=== PATIENT | female | born 2000 | race Native Hawaiian/Other Pacific Islander ===

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

== ENCOUNTER 2018-06-17 16:56 | Emergency (ER) | payer OTHER ==
[2018-06-17 17:04] VITALS: RESP 18
--- NOTE | 2018-06-17 17:26 | ED ---
Female Urogenital HPI - General Chief complaint: Vaginal Bleeding Stated complaint: POSS MISCARRIAGE Time Seen by Provider: 06/17/18 17:13 Source: patient, RN notes reviewed Mode of arrival: ambulatory Limitations: no limitations - History of Present Illness Initial comments: This is a 17-year-old female who presents to the emergency department with chief complaint of possible miscarriage. Patient states that she does not remember the last time she had a period. She states that the last time she was sexually active was 2 months ago. Patient states that last week she did a test at home and it was positive. She states that yesterday she developed lower abdominal cramping and sharp pains as well as heavy vaginal bleeding. Patient states that she has been bleeding through tampons and pads and has had to wear a diaper. She denies any fevers or chills, chest pain or shortness of breath, nausea or vomiting, diarrhea or constipation. States that her [employer] is Dr. Gilmore and was planning on calling him tomorrow to set up an appointment. - Related Data Home Medications Medication Instructions Recorded Confirmed No Known Home Medications 06/17/18 06/17/18 Allergies Allergy/AdvReac Type Severity Reaction Status Date / Time ciprofloxacin [From Cipro] Allergy Swelling Verified 06/17/18 18:30 ciprofloxacin HCl Allergy Swelling Verified 06/17/18 18:30 [From Cipro] fluoxetine [From Prozac] Allergy Anaphylaxis Verified 06/17/18 18:30 methylphenidate Allergy Anaphylaxis Verified 06/17/18 18:30 [From Concerta] sertraline HCl [From Zoloft] Allergy Anaphylaxis Verified 06/17/18 18:30 Review of Systems ROS Statement: Those systems with pertinent positive or pertinent negative responses have been documented in the HPI. ROS Other: All systems not noted in ROS Statement are negative. Past Medical History Past Medical History: Asthma, Skin Disorder Additional Past Medical History / Comment(s): excema History of Any Multi-Drug Resistant Organisms: None Reported Past Surgical History: No Surgical Hx Reported Past Anesthesia/Blood Transfusion Reactions: No Reported Reaction Past Psychological History: ADD/ADHD, Anxiety, Bipolar, Depression Smoking Status: Never smoker Past Alcohol Use History: None Reported Past Drug Use History: None Reported - Past Family History Mother Family Medical History: Hypertension General Exam - General Exam Comments Initial Comments: General: Awake and alert, well-developed; in no apparent distress. HEENT: Head atraumatic, normocephalic. Pupils are equal, round and reactive to light. Extraocular movements intact. Oropharynx moist without erythema or exudate. Neck: Supple. Normal ROM. Cardiovascular: Regular rate and rhythm. No murmurs, rubs or gallops. Chest symmetrical. Respiratory: Lungs clear to auscultation bilaterally. No wheezes, rales or rhonchi. Normal respiratory effort with no use of accessory muscles. Abdomen: Soft, non-tender, non-distended. No rigidity, rebound or guarding. Normal bowel sounds in all 4 quadrants. Musculoskeletal: Normal ROM, no tenderness bilateral upper and lower extremities. Ambulating normally. Skin: [place], warm and dry without rashes or lesions. Neurological: Alert and oriented x3. CN II-XII grossly intact. Speech is fluent and answers are appropriate. No focal neuro deficits. Psychiatric: Normal mood and affect. No overt signs of depression or anxiety noted. Limitations: no limitations Course Vital Signs 06/17/18 06/17/18 17:00 18:33 Temperature 97.4 F L 98.4 F Pulse Rate 69 72 Respiratory 18 18 Rate Blood Pressure 121/73 130/73 O2 Sat by Pulse 98 100 Oximetry Medical Decision Making - Medical Decision Making This is a 17-year-old female who presents to the emergency department with chief complaint of possible miscarriage. Patient is unsure the last time she had her menstrual period. She states she had a positive test last week. Began having lower abdominal cramping and vaginal bleeding yesterday. CBC and CMP are unremarkable. Urine hCG was not detected and serum hcg quant was less than 2.4. Patient is not . UA revealed large blood and 93 red blood cells. Obstetrical ultrasound revealed no intrauterine . Patient likely is starting her menstrual cycle. Vital signs are stable and patient is in no acute distress. She will be discharged home at this time. She is in agreement and voices understanding. All questions answered. Recommend following up with her [employer]. - Lab Data Result diagrams: 06/17/18 18:20 06/17/18 17:30 Lab Results 06/17/18 06/17/18 06/17/18 Range/Units 17:30 17:30 17:50 WBC (4.0-11.0) k/uL RBC (3.80-5.40) m/uL Hgb (11.4-16.0) gm/dL Hct (34.0-46.0) % MCV (80.0-100.0) fL MCH (25.0-35.0) pg MCHC (31.0-37.0) g/dL RDW (11.5-15.5) % Plt Count (150-450) k/uL Neutrophils % % Lymphocytes % % Monocytes % % Eosinophils % % Basophils % % Neutrophils # (1.3-7.7) k/uL Lymphocytes # (1.0-4.8) k/uL Monocytes # (0-1.0) k/uL Eosinophils # (0-0.7) k/uL Basophils # (0-0.2) k/uL Sodium 141 (137-145) mmol/L Potassium 4.1 (3.5-5.1) mmol/L Chloride 106 (98-107) mmol/L Carbon Dioxide 25 (22-30) mmol/L Anion Gap 10 mmol/L BUN 18 H (7-17) mg/dL Creatinine 0.64 (0.52-1.04) mg/dL Est GFR (CKD-EPI)AfAm >90 (>60 ml/min/1.73 sqM) Est GFR (CKD-EPI)NonAf >90 (>60 ml/min/1.73 sqM) Glucose 90 (74-99) mg/dL Calcium 9.9 (8.4-10.2) mg/dL Total Bilirubin 0.8 (0.2-1.3) mg/dL AST 19 (14-36) U/L ALT 25 (9-52) U/L Alkaline Phosphatase 63 (38-126) U/L Total Protein 7.9 (6.3-8.2) g/dL Albumin 5.0 (3.5-5.0) g/dL HCG, Quant <2.4 mIU/mL Urine Color Yellow Urine Appearance Clear (Clear) Urine pH 5.5 (5.0-8.0) Ur Specific Gardner 1.029 (1.001-1.035) Urine Protein Trace H (Negative) Urine Glucose (UA) Negative (Negative) Urine Ketones Negative (Negative) Urine Blood Large H (Negative) Urine Nitrite Negative (Negative) Urine Bilirubin Negative (Negative) Urine Urobilinogen 2.0 (<2.0) mg/dL Ur Leukocyte Esterase Negative (Negative) Urine RBC 93 H (0-5) /hpf Urine WBC 1 (0-5) /hpf Ur Squamous Epith Cells 1 (0-4) /hpf Urine Mucus Occasional H (None) /hpf Urine HCG, Qual (Not Detectd) Blood Type O Positive Blood Type Recheck No 06/17/18 06/17/18 Range/Units 17:50 18:20 WBC 6.8 (4.0-11.0) k/uL RBC 4.34 (3.80-5.40) m/uL Hgb 11.6 (11.4-16.0) gm/dL Hct 36.8 (34.0-46.0) % MCV 84.9 (80.0-100.0) fL MCH 26.7 (25.0-35.0) pg MCHC 31.4 (31.0-37.0) g/dL RDW 14.0 (11.5-15.5) % Plt Count 286 (150-450) k/uL Neutrophils % 53 % Lymphocytes % 35 % Monocytes % 7 % Eosinophils % 2 % Basophils % 0 % Neutrophils # 3.6 (1.3-7.7) k/uL Lymphocytes # 2.4 (1.0-4.8) k/uL Monocytes # 0.5 (0-1.0) k/uL Eosinophils # 0.1 (0-0.7) k/uL Basophils # 0.0 (0-0.2) k/uL Sodium (137-145) mmol/L Potassium (3.5-5.1) mmol/L Chloride (98-107) mmol/L Carbon Dioxide (22-30) mmol/L Anion Gap mmol/L BUN (7-17) mg/dL Creatinine (0.52-1.04) mg/dL Est GFR (CKD-EPI)AfAm (>60 ml/min/1.73 sqM) Est GFR (CKD-EPI)NonAf (>60 ml/min/1.73 sqM) Glucose (74-99) mg/dL Calcium (8.4-10.2) mg/dL Total Bilirubin (0.2-1.3) mg/dL AST (14-36) U/L ALT (9-52) U/L Alkaline Phosphatase (38-126) U/L Total Protein (6.3-8.2) g/dL Albumin (3.5-5.0) g/dL HCG, Quant mIU/mL Urine Color Urine Appearance (Clear) Urine pH (5.0-8.0) Ur Specific Gardner (1.001-1.035) Urine Protein (Negative) Urine Glucose (UA) (Negative) Urine Ketones (Negative) Urine Blood (Negative) Urine Nitrite (Negative) Urine Bilirubin (Negative) Urine Urobilinogen (<2.0) mg/dL Ur Leukocyte Esterase (Negative) Urine RBC (0-5) /hpf Urine WBC (0-5) /hpf Ur Squamous Epith Cells (0-4) /hpf Urine Mucus (None) /hpf Urine HCG, Qual Not Detected (Not Detectd) Blood Type Blood Type Recheck - Radiology Data Radiology results: report reviewed Symmetrical ultrasound impression: No visualized intrauterine . Correlate with beta ACG levels. Note that beta-hCG of 2000 is the threshold for visualization of an intrauterine gestational sac by transvaginal scanning. This was a transabdominal ultrasound exam. In the setting of a positive test, differential considerations include normal intrauterine , failed and nonvisualized ectopic . 2. Heterogenous myometrium could represent diffuse small fibroid change or adenomyosis. 3. Follicular change on both sides. Disposition Clinical Impression: Vaginal bleeding Disposition: HOME SELF-CARE Condition: Good Instructions: Menstruation (ED) Additional Instructions: Please follow-up with Dr. Gilmore. Please follow up with primary care provider within 1-2 days. Return to emergency department if symptoms should worsen or any concerns arise. Is patient prescribed a controlled substance at d/c from ED?: No Referrals: Darrell Reyna MD [Primary Care Provider] - 1-2 days Time of Disposition: 18:55
[2018-06-17 18:07] LABS: Appearance,Urine Clear (Clear); Bilirubin,Urine Negative (Negative); Blood,Urine Large (Negative); Color,Urine Yellow; Glucose,Urine (UA) Negative (Negative); Ketones,Urine Negative (Negative); Leukocyte Esterase,Urine Negative (Negative); Mucus,Urine Occasional /hpf; Nitrite,Urine Negative (Negative); PH, Urine 5.5 (5.0-8.0); Protein,Urine Trace (Negative); RBC,Urine 93 /hpf (0-5); Specific Gravity,Urine 1.029 (1.001-1.035); Squamous Epithelial Cell,Urine 1 /hpf (0-4); WBC,Urine 1 /hpf (0-5)
[2018-06-17 18:15] LABS: ALT 25 U/L (9-52); AST 19 U/L (14-36); Alkaline Phosphatase 63 U/L (38-126); Anion Gap 10 mmol/L; Blood Urea Nitrogen 18 mg/dL (7-17); Calcium 9.9 mg/dL (8.4-10.2); Carbon Dioxide 25 mmol/L (22-30); Chloride 106 mmol/L (98-107); Glucose 90 mg/dL (74-99); Potassium 4.1 mmol/L (3.5-5.1); Sodium 141 mmol/L (137-145); Total Bilirubin 0.8 mg/dL (0.2-1.3); Total Protein 7.9 g/dL (6.3-8.2)
[2018-06-17 18:31] LABS: HCG,Quantitative Serum <2.4 mIU/mL
[2018-06-17 18:34] VITALS: BP 130/73; PULSE 72; TEMP 98.4
[2018-06-17 18:37] LABS: Basophils % (A) 0 %; Eosinophils # (A) 0.1 k/uL (0-0.7); Eosinophils % (A) 2 %; HCT 36.8 % (34.0-46.0); HGB 11.6 gm/dL (11.4-16.0); Lymphocytes # (A) 2.4 k/uL (1.0-4.8); Lymphocytes % (A) 35 %; MCH 26.7 pg (25.0-35.0); MCHC 31.4 g/dL (31.0-37.0); MCV 84.9 fL (80.0-100.0); Mean Platelet Volume 7.2; Monocytes # (A) 0.5 k/uL (0-1.0); Monocytes % (A) 7 %; Neutrophils # (A) 3.6 k/uL (1.3-7.7); Neutrophils % (A) 53 %; Platelet Count 286 k/uL (150-450); RBC 4.34 m/uL (3.80-5.40); WBC 6.8 k/uL (4.0-11.0)
--- NOTE | 2018-06-17 18:49 | US ---
EXAMINATION TYPE: Transabdominal ultrasound OB <= 14 weeks fetus DATE OF EXAM: 02/13/18 COMPARISON: NONE CLINICAL HISTORY: 17-year-old female with vaginal bleed. Patient has positive home test x 3. EXAM PERFORMED: Transabdominal (TA) FINDINGS: EXAM MEASUREMENTS: GESTATIONAL AGE / DATING Physician Established: Not yet established Dates by LMP: LMP unknown Dates by First Scan: No previous this is first scan Dates by Current Scan for: Unable to date by today's study MATERNAL ANATOMY Uterus: Retroflexed with heterogeneous myometrium. 7.7 x 3.7 x 4.8cm Endometrial stripe: 6.6 mm. Right Ovary: 2.9 x 1.4 x 2.0cm Left Ovary: 2.8 x 2.0 x 1.6cm Follicular change on both sides. Post CDS / Adnexa: wnl Presence of free fluid: None. GESTATION / SURVEY IUP: No IUP seen at this time IMPRESSION: 1. No visualized intrauterine . Correlate with beta hCG values. Note that beta-hCG of 2000 i s the threshold for visualization of an intrauterine gestational sac by transvaginal scanning. This w as a transabdominal ultrasound exam. In the setting of a positive test, differential consid erations include normal intrauterine , failed , and nonvisualized ectopic . 2. Heterogeneous myometrium could represent diffuse small fibroid change or adenomyosis. 3. Follicular change on both sides.
== END 2018-06-17 19:03 | disposition home or self-care (01) ==
LOC: EC 16:56
DX: N93.9 Abnormal uterine and vaginal bleeding, unspecified (principal); Z88.1 Allergy status to other antibiotic agents; Z88.8 Allergy status to other drugs, medicaments and biological substances
CPT/HCPCS: 36415; 76801; 80053; 81001; 81025; 84702; 85025; 86900; 86901; 99284

== ENCOUNTER 2019-06-06 22:51 | Emergency (ER) | payer OTHER ==
[2019-06-06 23:27] VITALS: BP 103/68; PULSE 93; RESP 18; TEMP 98.5
--- NOTE | 2019-06-07 00:37 | ED ---
Abdominal Pain HPI - General Chief Complaint: Abdominal Pain Stated Complaint: Abd Pain, pgt Time Seen by Provider: 06/07/19 00:01 Source: patient Mode of arrival: ambulatory Limitations: no limitations - History of Present Illness Initial Comments: Lea is a 2004 female currently neck, unknown gestation who presents to the emergency department today for evaluation of lower abdominal cramping. Patient reports that her youngest child is 1-year-old, she states that since that delivery she's had irregular periods so she does not know when her last period was. She states that she has known for about 2 months that she is has not had any care, she is scheduled to see an livestock farmers on June 19. Patient states that today she began experiencing lower abdominal cramping and contacted the on-call OB office however was told that due to to being unknown gestation she needs come the hospital for evaluation. She denies any vaginal bleeding or discharge. - Related Data Home Medications Medication Instructions Recorded Confirmed No Known Home Medications 06/17/18 06/17/18 Allergies Allergy/AdvReac Type Severity Reaction Status Date / Time ciprofloxacin [From Cipro] Allergy Swelling Verified 06/06/19 23:27 ciprofloxacin HCl Allergy Swelling Verified 06/06/19 23:27 [From Cipro] fluoxetine [From Prozac] Allergy Anaphylaxis Verified 06/06/19 23:27 methylphenidate Allergy Anaphylaxis Verified 06/06/19 23:27 [From Concerta] sertraline HCl [From Zoloft] Allergy Anaphylaxis Verified 06/06/19 23:27 Review of Systems ROS Statement: Those systems with pertinent positive or pertinent negative responses have been documented in the HPI. ROS Other: All systems not noted in ROS Statement are negative. 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 Patient is nontoxic and well-hydrated and is in no distress. HENT: Normocephalic, Atraumatic. EYES: PERRL, EOMI PULMONARY: Unlabored respirations. CARDIOVASCULAR: RRR ABDOMEN: Gravid abdomen uterus is palpable at the level of the umbilicus SKIN: Skin is clear with no lesions or rashes and otherwise unremarkable. : Deferred NEUROLOGIC: Patient is alert and oriented x3. Moving all extremities spontaneously MUSCULOSKELETAL: Normal extremities with adequate strength and full range of motion. No lower extremity swelling or edema. No calf tenderness. PSYCHIATRIC: Normal psychiatric evaluation Limitations: no limitations Course Vital Signs 06/06/19 23:24 Temperature 98.5 F Pulse Rate 93 Respiratory 18 Rate Blood Pressure 103/68 O2 Sat by Pulse 98 Oximetry Medical Decision Making - Medical Decision Making The patient was seen and evaluated, bedside ultrasound was performed Based on physical exam with the uterus being palpable above the umbilicus and US with fetus that appears to be late second trimester I feel the patient would be better served being evaluated on the labor and delivery triage unit Patient care was discussed with labor and delivery triage nurse, patient discharged from the ER and transferred to labor and delivery. Disposition Clinical Impression: Abdominal pain Disposition: OTHER INSTITUTION NOT DEFINED Condition: Stable Instructions (If sedation given, give patient instructions): Abdominal Pain in (ED) Referrals: Darrell Reyna MD [Primary Care Provider] - 1-2 days - Out of Hospital Transfer - Req. Specs Out of Hospital Transfer - Requested Specifics: Other Non-Acute (To Labor and Delivery)
[2019-06-07 00:45] LABS: Amorphous Sediment,Urine Rare /hpf; Appearance,Urine Clear (Clear); Bacteria,Urine Rare /hpf; Bilirubin,Urine Negative (Negative); Blood,Urine Negative (Negative); Color,Urine Yellow; Glucose,Urine (UA) 1+ (Negative); Ketones,Urine Negative (Negative); Leukocyte Esterase,Urine Moderate (Negative); Mucus,Urine Rare /hpf; Nitrite,Urine Negative (Negative); Protein,Urine Negative (Negative); RBC,Urine <1 /hpf (0-5); Specific Gravity,Urine 1.022 (1.001-1.035); Squamous Epithelial Cell,Urine 3 /hpf (0-4); Urobilinogen,Urine <2.0 mg/dL (<2.0); WBC,Urine 3 /hpf (0-5)
== END 2019-06-07 00:31 | disposition other institution (70) ==
LOC: EC 22:51
DX: O26.899 Other specified pregnancy related conditions, unspecified trimester (principal); R10.30 Lower abdominal pain, unspecified; Z88.1 Allergy status to other antibiotic agents; Z88.8 Allergy status to other drugs, medicaments and biological substances; Z3A.00 Weeks of gestation of pregnancy not specified
CPT/HCPCS: 81001; 81025; 99284

== ENCOUNTER 2019-06-07 00:34 | Outpatient (CLI) | payer OTHER ==
[2019-06-07 02:59] VITALS: BP 116/66; PULSE 82; RESP 16; TEMP 98.2
--- NOTE | 2019-06-07 03:05 | US ---
EXAM: US Uterus, Limited CLINICAL HISTORY: ITS.REASON US Reason: unknown dates TECHNIQUE: Real-time ultrasound of the maternal uterus (limited) with image documentation. COMPARISON: No relevant prior studies available. FINDINGS: Fetus: Single live intrauterine . Estimated gestational age 27 weeks 1 day by ultrasound. EFW: EFW 1072 g, +/- 160g Position: Breech presentation of fetus with heart rate 124 bpm. Amniotic fluid: DENNIS 18.2 cm. Cervix: Cervix long and closed, measuring 3.4cm. Vasculature: Question few small venous lakes along the placenta which is located anteriorly without abnormality. IMPRESSION: Single live intrauterine . Breech presentation. No other abnormalities. Estimates gestational age 27 weeks 1 day by ultrasound.
--- NOTE | 2019-06-07 05:45 | P.MSEPDOC ---
Presenting Problems - Arrival Data Date of Arrival on Unit: 06/07/19 Time of Arrival on Unit: 00:34 Mode of Transport: Portable - Complaint OB-Reason for Admission/Chief Complaint: Other Comment: Lower abdominal cramping and heartburn, unknown gestational age Medical History - Information : 3 Para: 2 Term: 2 : 0 Abortions: Spontaneous or Elective: 0 Number of Living Children: 2 - History Complications: No Care Comment: Pt has an appointment scheduled with Dr. Gusman on 06/19/19. Pt does not know when her last menstrual cycle was. Review of Systems - Review of Systems Constitutional: No problems Breast: No problems ENT: No problems Cardiovascular: No problems Respiratory: No problems Gastrointestinal: No problems Genitourinary: No problems Musculoskeletal: No problems Neurological: No problems Skin: No problems Vital Signs - Temperature Temperature: 98.2 F Temperature Source: Temporal Artery Scan - Pulse Pulse Oximetery Pulse Rate: 82 Pulse Assessment Method: Pulse Oximetry - Respirations Respiratory Rate: 16 Oxygen Delivery Method: Room Air O2 Sat by Pulse Oximetry: 98 - Blood Pressure Right Arm Blood Pressure: 116/66 Blood Pressure Mean: 82 Blood Pressure Source: Automatic Cuff Medical Screen Scoring (Pre) - Cervical Exam Dilation: Exam Deferred Effacement: Exam Deferred Membranes: Intact - Uterine Contractions Frequency: N/A Duration: N/A Intensity: N/A - Maternal Vital Signs Maternal Temperature: N/A Maternal Blood Pressure: N/A Signs of Preeclampsia: N/A Maternal Respirations: N/A - Maternal Trauma Maternal Trauma: N/A - Assessment - Baby A Baseline FHR: 140 Heart Rate - NICHD Category: Category II (Indeterminate) = 3 Position: N/A Station: N/A - Total Score - Baby A Total Score - Baby A: 3 - Total Score - Baby B Total Score - Baby B: 0 - Total Score - Baby C Total Score - Baby C: 0 - Level of Risk - Baby A Level of Risk - Baby A: Low (0-5) - Level of Risk - Baby B Level of Risk - Baby B: Low (0-5) - Level of Risk - Baby C Level of Risk - Baby C: Low (0-5) Physician Notification (Pre) - Physician Notified Physician Notified Date: 06/07/19 Physician Notified Time: 01:00 Physician/Practitioner Notifed:: Dr. Piper Spoke With: Dr. Piper New Order Received: Yes - Notification Comment Comment: Dr. Piper called, report given on maternal/ status, unknown gestat ional age, no care, complaints of abdominal cramping, no contractions. Orders to get a complete u/s. If no previa, check pt. If cervix is closed, discharge pt. Disposition - Disposition OB Disposition: Observe Discharge Date: 06/07/19 Discharge Time: 02:42 I agree with the RN Medical Screening Exam: Yes Risk & Benefit of care provided described in d/c instruction: Yes Diagnosis: FALSE LABOR BEFORE 37 COMPLETED WEEKS OF GEST, SECOND TRI
== END 2019-06-07 02:42 | disposition home or self-care (01) ==
LOC: FBPOP 00:34
PROVIDERS: ATTEND Obstetrics & Gynecology
DX: O47.02 False labor before 37 completed weeks of gestation, second trimester (principal); O32.1XX0 Maternal care for breech presentation, not applicable or unspecified; Z3A.27 27 weeks gestation of pregnancy
CPT/HCPCS: 76805; G0463; 99213

== ENCOUNTER 2019-08-26 10:47 | Outpatient (CLI) | payer OTHER ==
[2019-08-26 11:14] VITALS: BP 121/74; PULSE 92; RESP 17; TEMP 97.1
--- NOTE | 2019-08-31 12:04 | P.MSEPDOC ---
Presenting Problems - Arrival Data Date of Arrival on Unit: 08/26/19 Time of Arrival on Unit: 10:47 Mode of Transport: Ambulatory - Complaint OB-Reason for Admission/Chief Complaint: Rule Out SROM, Other Comment: pt here with c/o pain right lower region of abd near belly button that. increases when laying down and possible rom of clear fluid this morning around 3 am,. reports + fm, denies complications with , abd soft and non tender, denies. contractions/cramping, denies vb Medical History - Information : 3 Para: 2 Term: 2 : 0 Abortions: Spontaneous or Elective: 0 Number of Living Children: 2 - Gestational Age Gestational Age by TAMMI (wks/days): 38 Weeks and 5 Days - History Comment: late care Review of Systems - Review of Systems Constitutional: No problems Breast: No problems ENT: No problems Cardiovascular: No problems Respiratory: No problems Gastrointestinal: No problems Genitourinary: No problems Musculoskeletal: No problems Neurological: No problems Skin: No problems Vital Signs - Temperature Temperature: 97.1 F Temperature Source: Temporal Artery Scan - Pulse Right Brachial Pulse Rate: 92 Pulse Assessment Method: Automatic Cuff - Respirations Respiratory Rate: 17 Oxygen Delivery Method: Room Air O2 Sat by Pulse Oximetry: 100 - Blood Pressure Right Arm Blood Pressure: 121/74 Blood Pressure Mean: 89 Blood Pressure Source: Automatic Cuff Medical Screen Scoring (Pre) - Cervical Exam Dilation: 0 cm = 0 Membranes: Intact - Uterine Contractions Frequency: > 5 minutes apart = 1 Duration: > 40 seconds = 2 Intensity: N/A - Maternal Vital Signs Maternal Temperature: N/A Maternal Blood Pressure: N/A Signs of Preeclampsia: N/A Maternal Respirations: N/A - Maternal Trauma Maternal Trauma: N/A - Assessment - Baby A Baseline FHR: 135 Heart Rate - NICHD Category: Category I (Normal) = 0 NST: Reactive Position: N/A Station: N/A - Total Score - Baby A Total Score - Baby A: 3 - Total Score - Baby B Total Score - Baby B: 3 - Total Score - Baby C Total Score - Baby C: 3 - Level of Risk - Baby A Level of Risk - Baby A: Low (0-5) - Level of Risk - Baby B Level of Risk - Baby B: Low (0-5) - Level of Risk - Baby C Level of Risk - Baby C: Low (0-5) Physician Notification (Pre) - Physician Notified Physician Notified Date: 08/26/19 Physician Notified Time: 11:35 Physician/Practitioner Notifed:: Dr Gusman Spoke With: Dr Gusman New Order Received: Yes (dc home) Disposition - Disposition OB Disposition: Discharge to home, Written follow up instructions reviewed Discharge Date: 08/26/19 Discharge Time: 11:49 I agree with the RN Medical Screening Exam: Yes Risk & Benefit of care provided described in d/c instruction: Yes Diagnosis: ABDOMINAL TENDERNESS, UNSPECIFIED SITE
== END 2019-08-26 11:49 | disposition home or self-care (01) ==
LOC: FBPOP 10:47
PROVIDERS: ATTEND Obstetrics & Gynecology
DX: O99.89 Other specified diseases and conditions complicating pregnancy, childbirth and the puerperium (principal); R10.819 Abdominal tenderness, unspecified site; Z3A.38 38 weeks gestation of pregnancy
CPT/HCPCS: 59025; 84112; G0463; 99213

== ENCOUNTER 2019-09-02 03:08 | Inpatient (IN) | payer OTHER ==
[2019-09-02] MEDS ORDERED: LIDOCAINE 0.5% (PF) 5 MG/ML (50 ML SDV) SQ PRN (03:35)
[2019-09-02] MEDS ORDERED: OXYTOCIN 10 UNIT/ML 1 ML VIAL IM PRN (03:35)
[2019-09-02] MEDS ORDERED: TERBUTALINE 1 MG/ML VIAL SQ PRN (03:35)
[2019-09-02] MEDS ORDERED: METHYLERGONOVINE 0.2 MG/ML 1 ML AMP IM PRN (03:35)
[2019-09-02] MEDS ORDERED: CARBOPROST TROMETHAMINE 250 MCG/ML 1 ML AMP IM PRN (03:35)
[2019-09-02] MEDS ORDERED: OXYTOCIN 30 UNITS/500 ML NS 30 UNIT in SALINE 1 500ML.BAG IV SCH (03:45)
[2019-09-02 04:11] VITALS: RESP 16; BMI 24.1
[2019-09-02] MEDS: BUTORPHANOL 1 MG/ML 1 ML VIAL IV PRN ×2 (04:29→06:50)
[2019-09-02] MEDS: LACTATED RINGERS 1,000 ML IV SCH ×2 (04:29→21:27)
[2019-09-02 04:32] LABS: Basophils # (A) 0.1 k/uL (0-0.2); Basophils % (A) 0 %; Eosinophils # (A) 0.1 k/uL (0-0.7); Eosinophils % (A) 1 %; HCT 31.7 % (34.0-46.0); HGB 9.6 gm/dL (11.4-16.0); Hypochromasia Slight; Lymphocytes % (A) 23 %; MCH 23.7 pg (25.0-35.0); MCHC 30.3 g/dL (31.0-37.0); Mean Platelet Volume 7.9; Monocytes # (A) 0.8 k/uL (0-1.0); Monocytes % (A) 6 %; Neutrophils # (A) 8.4 k/uL (1.3-7.7); Neutrophils % (A) 66 %; Platelet Count 282 k/uL (150-450); Poikilocytosis Slight; RBC 4.06 m/uL (3.80-5.40); RDW 14.4 % (11.5-15.5); WBC 12.8 k/uL (4.0-11.0)
[2019-09-02] MEDS ORDERED: SIMETHICONE 80 MG CHEWABLE PO PRN (11:10)
[2019-09-02] MEDS ORDERED: diphenhydrAMINE 25 MG CAP PO PRN (11:10)
[2019-09-02] MEDS ORDERED: diphenhydrAMINE 50 MG/ML 1 ML VIAL IVP PRN ×2 (11:10)
[2019-09-02] MEDS ORDERED: LANOLIN CREAM 5 GM TUBE TOPICAL PRN (11:10)
[2019-09-02] MEDS ORDERED: diphenhydrAMINE 50 MG CAP PO PRN (11:10)
[2019-09-02] MEDS: IBUPROFEN 600 MG TAB PO PRN ×2 (11:51→18:26)
[2019-09-02] MEDS: ACETAMINOPHEN TAB 325 MG TAB PO PRN ×2 (15:28→20:16)
--- NOTE | 2019-09-02 17:30 | P.PROBDLV ---
Vaginal Delivery Note - . Vaginal Delivery Note: The patient progressed to complete dilation at approximately 9:35 AM. When she was encouraged to push, she refused to push. She was allowed to labor down and finally did begin pushing. She pushed for a few pushes and then infant's head delivered across the perineum followed by the anterior shoulder and the remainder the body at 10:41 AM Nose and mouth were bulb suctioned after delivery. Cord was clamped and cut and infant was taken to warmer for evaluation. A viable female was noted with scores of 8 at 1 minute and 9 at 5 minutes and infant weight was 7 lbs. 1 oz. Placenta initially did not separate easily and therefore uterine massage was carried out. Her bladder was drained with a straight cath. Uterus was again massaged and the placenta did deliver with some maternal pushing efforts approximately 15 minutes after the baby. Several large clots a mount after the placenta. Uterus contracted well after oxytocin was given and uterine massage was carried out. Inspection of the perineum revealed no perineal lacerations. Estimated blood loss is approximately 200 mL's. Both mother and infant are in stable condition.
[2019-09-02] MEDS: SENNOSIDES-DOCUSATE SODIUM 1 EACH TAB PO SCH (21:26)
[2019-09-03 01:23] VITALS: TEMP 98.5
[2019-09-03] MEDS: IBUPROFEN 600 MG TAB PO PRN ×2 (06:33→12:59)
--- NOTE | 2019-09-03 08:09 | P.HPOB ---
History of Present Illness H&P Date: 09/03/19 Chief Complaint: Intrauterine at term: Active labor Danna is a 18-year-old at 39 weeks gestation for consent in active labor. Her Precis course has been limited by late care but has been followed closely over the latter part of the . She is noted to be making cervical change. Couple and alta every 2-3 minutes. Her vital signs are stable and afebrile. Category 1 tracing is noted. Artificial rupture membranes was performed with her dilated to 7 cm heart percent effaced and -2 station. All the questions are answered for her at this time. It is noted that she did progress to complete and pushing relatively rapidly but pushed for approximately 20 minutes and stopped. She refused to push and she wanted to the lower soft l abor down as she was apprehensive about the pain she was feeling and could not bring herself to bear down or pushed with any significant effort. Therefore will be monitored closely with heart tones which were again Stil[place] category 1 tracing and reactive. And a weight more pressure sensation for her to be able to push. Past Medical History Past Medical History: Asthma, Skin Disorder Additional Past Medical History / Comment(s): excema History of Any Multi-Drug Resistant Organisms: None Reported Past Surgical History: No Surgical Hx Reported Past Anesthesia/Blood Transfusion Reactions: No Reported Reaction Past Psychological History: ADD/ADHD, Anxiety, Bipolar, Depression Smoking Status: Never smoker Past Alcohol Use History: None Reported Past Drug Use History: None Reported - Past Family History Mother Family Medical History: Hypertension Medications and Allergies Home Medications Medication Instructions Recorded Confirmed Type Pnv No.95/Ferrous Fum/Folic AC 1 each PO DAILY 06/07/19 09/02/19 History [ Multivitamin Tablet] Ibuprofen [Motrin] 600 mg PO Q6HR PRN #30 tab 09/03/19 Rx Allergies Allergy/AdvReac Type Severity Reaction Status Date / Time ciprofloxacin [From Cipro] Allergy Swelling Verified 09/02/19 03:27 ciprofloxacin HCl Allergy Swelling Verified 09/02/19 03:27 [From Cipro] fluoxetine [From Prozac] Allergy Anaphylaxis Verified 09/02/19 03:27 methylphenidate Allergy Anaphylaxis Verified 09/02/19 03:27 [From Concerta] sertraline HCl [From Zoloft] Allergy Anaphylaxis Verified 09/02/19 03:27 Exam Osteopathic Statement: *. No significant issues noted on an osteopathic structural exam other than those noted in the History and Physical/Consult. Vital Signs Temp Pulse Resp BP 09/03/19 00:00 98.5 F 62 16 118/67 09/02/19 20:00 98 F 76 16 119/69 09/02/19 16:00 98.4 F 84 16 109/57 09/02/19 13:04 98.0 F 61 16 122/69 09/02/19 12:34 70 16 123/79 09/02/19 12:04 77 16 125/70 09/02/19 11:49 65 16 124/72 09/02/19 11:34 69 16 120/71 09/02/19 11:19 68 16 124/81 09/02/19 11:04 97.7 F 80 16 126/73 Intake and Output 09/02/19 09/03/19 09/03/19 22:59 06:59 14:59 Other: # Voids 1 2 - OBG Physical Exam Breast: both: normal (no masses) Abdomen: bowel sounds normal, no diffuse tenderness, no bruit present, no guarding noted, no hepatomegaly, no splenomegaly, no mass Vulva: both: normal Vagina: normal moisture, no discharge Cervix: no lesion, no discharge Uterus: normal size, normal contour Adnexa: both: normal Anus/Rectum: normal perianal skin, no rectal mass, no hemorrhoids, heme negative Results Result Diagrams: 09/02/19 04:10
--- NOTE | 2019-09-03 08:10 | P.DS ---
Providers Date of admission: 09/02/19 03:34 Expected date of discharge: 09/03/19 Attending physician: Virgilio Gusman Primary care physician: Stated None Hospital Course: Patient is doing very well post day 1. She is involuting, voiding and tolerating her diet. She voices no complaints and is requesting discharge home today. Vital signs are stable and she is afebrile. She has no signs or symptoms of hypovolemia. All questions were answered for her prior to her discharge and discharge instructions were thoroughly reviewed. On physical exam vital signs are stable and afebrile. Heart regular, lungs clear, extremities without pain. Abdomen soft uterus is firm and lochia is reported to be light. Assessment post [place] day 1. Plan discharged home follow up with me in 6 weeks. Prescription for Motrin and a breast pump have been provided. Patient Condition at Discharge: Good Plan - Discharge Summary New Discharge Prescriptions: New Ibuprofen [Motrin] 600 mg PO Q6HR PRN #30 tab PRN Reason: Pain No Action Pnv No.95/Ferrous Fum/Folic AC [ Multivitamin Tablet] 1 each PO DAILY Discharge Medication List Pnv No.95/Ferrous Fum/Folic AC [ Multivitamin Tablet] 1 each PO DAILY 06/07/19 [History] Ibuprofen [Motrin] 600 mg PO Q6HR PRN #30 tab 09/03/19 [Rx] Follow up Appointment(s)/Referral(s): Virgilio Gusman DO [Doctor of Osteopathic Medicine] - 6 Weeks Activity/Diet/Wound Care/Special Instructions: No heavy lifting, limit stairs and driving, and pelvic rest. If any high temperatures, heavy bleeding, or severe pain call my office Discharge Disposition: HOME SELF-CARE
[2019-09-03] MEDS: ACETAMINOPHEN TAB 325 MG TAB PO PRN (08:13)
[2019-09-03 08:15] LABS: Basophils % (A) 0 %; Eosinophils # (A) 0.1 k/uL (0-0.7); Eosinophils % (A) 1 %; HCT 25.9 % (34.0-46.0); HGB 8.3 gm/dL (11.4-16.0); Hypochromasia Moderate; Lymphocytes # (A) 2.3 k/uL (1.0-4.8); Lymphocytes % (A) 21 %; MCH 25.2 pg (25.0-35.0); MCHC 31.9 g/dL (31.0-37.0); Mean Platelet Volume 7.1; Monocytes # (A) 0.6 k/uL (0-1.0); Monocytes % (A) 5 %; Neutrophils # (A) 7.9 k/uL (1.3-7.7); Neutrophils % (A) 72 %; Platelet Count 256 k/uL (150-450); Poikilocytosis Slight; RBC 3.28 m/uL (3.80-5.40); RDW 14.3 % (11.5-15.5)
[2019-09-03 09:08] VITALS: BP 112/73; PULSE 65
[2019-09-03] MEDS: SENNOSIDES-DOCUSATE SODIUM 1 EACH TAB PO SCH (09:08)
== END 2019-09-03 14:00 | disposition home or self-care (01) | DRG 807 ==
LOC: FBPOP 03:08 → 4FBP 03:34
PROVIDERS: ADMIT Obstetrics & Gynecology; ATTEND Obstetrics & Gynecology
PROC: 10E0XZZ Delivery of Products of Conception, External Approach (ICD-10-PCS; principal; 2019-09-02)
DX: O80 Encounter for full-term uncomplicated delivery (principal); Z37.0 Single live birth; Z86.59 Personal history of other mental and behavioral disorders; Z87.09 Personal history of other diseases of the respiratory system; Z87.2 Personal history of diseases of the skin and subcutaneous tissue; Z3A.39 39 weeks gestation of pregnancy; Z88.1 Allergy status to other antibiotic agents; Z88.8 Allergy status to other drugs, medicaments and biological substances; Z82.49 Family history of ischemic heart disease and other diseases of the circulatory system
CPT/HCPCS: 59025; 85025; 86762; 86780; 86850; 86900; 86901; 87340; 99213

== ENCOUNTER 2020-06-30 04:03 | Emergency (ER) | payer OTHER ==
[2020-06-30 04:16] VITALS: BP 117/77; PULSE 103; RESP 16; TEMP 98.1
--- NOTE | 2020-06-30 04:20 | ED ---
General Adult HPI - General Chief complaint: Weakness Stated complaint: Weakness Time Seen by Provider: 06/30/20 04:08 Source: patient, EMS Mode of arrival: EMS Limitations: no limitations - History of Present Illness Initial comments: This patient is 19-year-old woman who presents to be evaluated after she had syncopal episode. The patient states that she had been feeling weak and unsteady tonight following taking her medication. She states that she actually did pass out but and neck following a friend caught her and lowered her to the ground. She does have some aches on the right side. She states that it is currently mild intensity. She is able to bear weight. -: minutes(s) Quality: aching Consistency: constant Improves with: none Worsens with: none Associated Symptoms: syncope - Related Data Home Medications Medication Instructions Recorded Confirmed Pnv No.95/Ferrous Fum/Folic AC 1 each PO DAILY 06/07/19 09/02/19 [ Multivitamin Tablet] Previous Rx's Medication Instructions Recorded Ibuprofen [Motrin] 600 mg PO Q6HR PRN #30 tab 09/03/19 Allergies Allergy/AdvReac Type Severity Reaction Status Date / Time ciprofloxacin [From Cipro] Allergy Swelling Verified 09/02/19 03:27 ciprofloxacin HCl Allergy Swelling Verified 09/02/19 03:27 [From Cipro] fluoxetine [From Prozac] Allergy Anaphylaxis Verified 09/02/19 03:27 methylphenidate Allergy Anaphylaxis Verified 09/02/19 03:27 [From Concerta] sertraline HCl [From Zoloft] Allergy Anaphylaxis Verified 09/02/19 03:27 Review of Systems ROS Statement: Those systems with pertinent positive or pertinent negative responses have been documented in the HPI. ROS Other: All systems not noted in ROS Statement are negative. Constitutional: Denies: fever, chills, weakness Eyes: Denies: vision change Respiratory: Denies: cough, dyspnea Cardiovascular: Reports: syncope. Denies: chest pain, palpitations, edema Gastrointestinal: Denies: abdominal pain, nausea, vomiting, diarrhea Genitourinary: Denies: dysuria, frequency, hematuria, abnormal menses Musculoskeletal: Denies: back pain Skin: Denies: rash Neurological: Denies: headache, weakness, numbness, confusion Past Medical History Past Medical History: Asthma, Skin Disorder Additional Past Medical History / Comment(s): excema History of Any Multi-Drug Resistant Organisms: None Reported Past Surgical History: No Surgical Hx Reported Past Anesthesia/Blood Transfusion Reactions: No Reported Reaction Past Psychological History: ADD/ADHD, Anxiety, Bipolar, Depression Smoking Status: Never smoker, Vaper Past Alcohol Use History: None Reported, Occasional Past Drug Use History: None Reported - Past Family History Mother Family Medical History: Hypertension General Exam Limitations: no limitations General appearance: alert, in no apparent distress Head exam: Present: atraumatic, normocephalic Eye exam: Present: normal appearance, PERRL, EOMI. Absent: scleral icterus, conjunctival injection ENT exam: Present: normal oropharynx Neck exam: Present: normal inspection Respiratory exam: Present: normal lung sounds bilaterally. Absent: respiratory distress, wheezes, rales, rhonchi, stridor, chest wall tenderness Cardiovascular Exam: Present: regular rate, normal rhythm, normal heart sounds. Absent: systolic murmur, diastolic murmur, rubs, gallop GI/Abdominal exam: Present: soft. Absent: distended, tenderness, guarding, rebound, rigid, mass Extremities exam: Present: normal inspection, normal capillary refill. Absent: pedal edema, calf tenderness Back exam: Present: normal inspection. Absent: CVA tenderness (R), CVA tenderness (L), vertebral tenderness Neurological exam: Present: alert, oriented X3, CN II-XII intact. Absent: motor sensory deficit Skin exam: Present: warm, dry, intact, normal color. Absent: rash Course Vital Signs 06/30/20 04:07 Temperature 98.1 F Pulse Rate 103 H Respiratory 16 Rate Blood Pressure 117/77 O2 Sat by Pulse 96 Oximetry EKG Findings - EKG Results: EKG: interpreted by ZOHAIB WNL, sinus rhythm (Rate 99 bpm), normal axis, normal QRS, normal ST/T, no acute changes Medical Decision Making - Lab Data Result diagrams: 06/30/20 04:28 06/30/20 04:28 Lab Results 06/30/20 06/30/20 06/30/20 Range/Units 04:28 04:28 04:28 WBC 9.1 (3.8-10.6) k/uL RBC 4.27 (3.80-5.40) m/uL Hgb 11.8 (11.4-16.0) gm/dL Hct 36.0 (34.0-46.0) % MCV 84.4 (80.0-100.0) fL MCH 27.7 (25.0-35.0) pg MCHC 32.8 (31.0-37.0) g/dL RDW 13.8 (11.5-15.5) % Plt Count 362 (150-450) k/uL Neutrophils % 58 % Lymphocytes % 32 % Monocytes % 6 % Eosinophils % 1 % Basophils % 0 % Neutrophils # 5.2 (1.3-7.7) k/uL Lymphocytes # 2.9 (1.0-4.8) k/uL Monocytes # 0.6 (0-1.0) k/uL Eosinophils # 0.1 (0-0.7) k/uL Basophils # 0.0 (0-0.2) k/uL Sodium 140 (137-145) mmol/L Potassium 4.4 (3.5-5.1) mmol/L Chloride 108 H (98-107) mmol/L Carbon Dioxide 23 (22-30) mmol/L Anion Gap 9 mmol/L BUN 12 (7-17) mg/dL Creatinine 0.57 (0.52-1.04) mg/dL Est GFR (CKD-EPI)AfAm >90 (>60 ml/min/1.73 sqM) Est GFR (CKD-EPI)NonAf >90 (>60 ml/min/1.73 sqM) Glucose 108 H (74-99) mg/dL Calcium 9.6 (8.4-10.2) mg/dL Total Bilirubin 0.5 (0.2-1.3) mg/dL AST 28 (14-36) U/L ALT 14 (4-34) U/L Alkaline Phosphatase 67 (38-126) U/L Total Protein 7.8 (6.3-8.2) g/dL Albumin 4.7 (3.5-5.0) g/dL Urine Color Light Yellow Urine Appearance Clear (Clear) Urine pH 6.0 (5.0-8.0) Ur Specific [place] 1.005 (1.001-1.035) Urine Protein Negative (Negative) Urine Glucose (UA) Negative (Negative) Urine Ketones Negative (Negative) Urine Blood Negative (Negative) Urine Nitrite Negative (Negative) Urine Bilirubin Negative (Negative) Urine Urobilinogen <2.0 (<2.0) mg/dL Ur Leukocyte Esterase Small (Negative) Urine RBC 1 (0-5) /hpf Urine WBC 3 (0-5) /hpf Ur Squamous Epith Cells <1 (0-4) /hpf Urine Mucus Rare H (None) /hpf Urine HCG, Qual (Not Detectd) Urine Opiates Screen (NotDetected) Ur Oxycodone Screen (NotDetected) Urine Methadone Screen (NotDetected) Ur Propoxyphene Screen (NotDetected) Ur Barbiturates Screen (NotDetected) U Tricyclic Antidepress (NotDetected) Ur Phencyclidine Scrn (NotDetected) Ur Amphetamines Screen (NotDetected) U Methamphetamines Scrn (NotDetected) U Benzodiazepines Scrn (NotDetected) Urine Cocaine Screen (NotDetected) U Marijuana (THC) Screen (NotDetected) 06/30/20 06/30/20 Range/Units 04:28 04:28 WBC (3.8-10.6) k/uL RBC (3.80-5.40) m/uL Hgb (11.4-16.0) gm/dL Hct (34.0-46.0) % MCV (80.0-100.0) fL MCH (25.0-35.0) pg MCHC (31.0-37.0) g/dL RDW (11.5-15.5) % Plt Count (150-450) k/uL Neutrophils % % Lymphocytes % % Monocytes % % Eosinophils % % Basophils % % Neutrophils # (1.3-7.7) k/uL Lymphocytes # (1.0-4.8) k/uL Monocytes # (0-1.0) k/uL Eosinophils # (0-0.7) k/uL Basophils # (0-0.2) k/uL Sodium (137-145) mmol/L Potassium (3.5-5.1) mmol/L Chloride (98-107) mmol/L Carbon Dioxide (22-30) mmol/L Anion Gap mmol/L BUN (7-17) mg/dL Creatinine (0.52-1.04) mg/dL Est GFR (CKD-EPI)AfAm (>60 ml/min/1.73 sqM) Est GFR (CKD-EPI)NonAf (>60 ml/min/1.73 sqM) Glucose (74-99) mg/dL Calcium (8.4-10.2) mg/dL Total Bilirubin (0.2-1.3) mg/dL AST (14-36) U/L ALT (4-34) U/L Alkaline Phosphatase (38-126) U/L Total Protein (6.3-8.2) g/dL Albumin (3.5-5.0) g/dL Urine Color Urine Appearance (Clear) Urine pH (5.0-8.0) Ur Specific [place] (1.001-1.035) Urine Protein (Negative) Urine Glucose (UA) (Negative) Urine Ketones (Negative) Urine Blood (Negative) Urine Nitrite (Negative) Urine Bilirubin (Negative) Urine Urobilinogen (<2.0) mg/dL Ur Leukocyte Esterase (Negative) Urine RBC (0-5) /hpf Urine WBC (0-5) /hpf Ur Squamous Epith Cells (0-4) /hpf Urine Mucus (None) /hpf Urine HCG, Qual Not Detected (Not Detectd) Urine Opiates Screen Not Detected (NotDetected) Ur Oxycodone Screen Not Detected (NotDetected) Urine Methadone Screen Not Detected (NotDetected) Ur Propoxyphene Screen Not Detected (NotDetected) Ur Barbiturates Screen Not Detected (NotDetected) U Tricyclic Antidepress Not Detected (NotDetected) Ur Phencyclidine Scrn Not Detected (NotDetected) Ur Amphetamines Screen Not Detected (NotDetected) U Methamphetamines Scrn Not Detected (NotDetected) U Benzodiazepines Scrn Not Detected (NotDetected) Urine Cocaine Screen Not Detected (NotDetected) U Marijuana (THC) Screen Not Detected (NotDetected) Disposition Clinical Impression: Syncope Disposition: HOME SELF-CARE Condition: Good Instructions (If sedation given, give patient instructions): Syncope (ED) Is patient prescribed a controlled substance at d/c from ED?: No Referrals: Darrell Reyna MD [Primary Care Provider] - 1-2 days
[2020-06-30] MEDS ORDERED: SODIUM CHLORIDE 0.9% 500 ML 500 ML IV STA (04:31)
[2020-06-30 04:42] LABS: Basophils % (A) 0 %; Eosinophils # (A) 0.1 k/uL (0-0.7); Eosinophils % (A) 1 %; HGB 11.8 gm/dL (11.4-16.0); Lymphocytes # (A) 2.9 k/uL (1.0-4.8); Lymphocytes % (A) 32 %; MCH 27.7 pg (25.0-35.0); MCHC 32.8 g/dL (31.0-37.0); MCV 84.4 fL (80.0-100.0); Mean Platelet Volume 7.5; Monocytes # (A) 0.6 k/uL (0-1.0); Monocytes % (A) 6 %; Neutrophils # (A) 5.2 k/uL (1.3-7.7); Neutrophils % (A) 58 %; Platelet Count 362 k/uL (150-450); RBC 4.27 m/uL (3.80-5.40); RDW 13.8 % (11.5-15.5); WBC 9.1 k/uL (3.8-10.6)
[2020-06-30 04:48] LABS: Mucus,Urine Rare /hpf; RBC,Urine 1 /hpf (0-5); Squamous Epithelial Cell,Urine <1 /hpf (0-4); WBC,Urine 3 /hpf (0-5)
[2020-06-30 04:49] LABS: Appearance,Urine Clear (Clear); Color,Urine Light Yellow; Protein,Urine Negative (Negative); Specific Gravity,Urine 1.005 (1.001-1.035)
[2020-06-30 04:50] LABS: Bilirubin,Urine Negative (Negative); Blood,Urine Negative (Negative); Glucose,Urine (UA) Negative (Negative); Ketones,Urine Negative (Negative); Leukocyte Esterase,Urine Small (Negative); Nitrite,Urine Negative (Negative); Urobilinogen,Urine <2.0 mg/dL (<2.0)
[2020-06-30 04:51] LABS: Amphetamine Screen,Urine Not Detected (NotDetected); Barbiturate Screen,Urine Not Detected (NotDetected); Benzodiazepines Screen,Urine Not Detected (NotDetected); Cocaine Screen,Urine Not Detected (NotDetected); Methadone Screen, Urine Not Detected (NotDetected); Opiate Screen,Urine Not Detected (NotDetected); Oxycodone Screen, Urine Not Detected (NotDetected); Phencyclidine Screen,Urine Not Detected (NotDetected); Tricyclic Antidepressant,Urine Not Detected (NotDetected); Urn Cannabinoid Scrn Not Detected (NotDetected)
[2020-06-30 04:53] LABS: ALT 14 U/L (4-34); AST 28 U/L (14-36); African American GFR (CKD) >90 (>60 ml/min/1.73 sqM); Albumin 4.7 g/dL (3.5-5.0); Alkaline Phosphatase 67 U/L (38-126); Anion Gap 9 mmol/L; Blood Urea Nitrogen 12 mg/dL (7-17); Calcium 9.6 mg/dL (8.4-10.2); Carbon Dioxide 23 mmol/L (22-30); Chloride 108 mmol/L (98-107); Glucose 108 mg/dL (74-99); Non-African American GFR(CKD) >90 (>60 ml/min/1.73 sqM); Potassium 4.4 mmol/L (3.5-5.1); Sodium 140 mmol/L (137-145); Total Bilirubin 0.5 mg/dL (0.2-1.3); Total Protein 7.8 g/dL (6.3-8.2)
== END 2020-06-30 05:17 | disposition home or self-care (01) ==
LOC: EC 04:03
DX: R55 Syncope and collapse (principal); R53.1 Weakness; F17.290 Nicotine dependence, other tobacco product, uncomplicated; Z88.1 Allergy status to other antibiotic agents; Z88.8 Allergy status to other drugs, medicaments and biological substances
CPT/HCPCS: 36415; 80053; 80306; 81001; 81025; 85025; 93005; 96360; 99285

== ENCOUNTER 2020-11-23 13:01 | Emergency (ER) | payer OTHER ==
[2020-11-23] MEDS ORDERED: SODIUM CHLORIDE 0.9% 1,000 ML IV STA (13:20)
[2020-11-23] MEDS ORDERED: KETOROLAC 15 MG/ML 1 ML VIAL IVP STA (13:55)
[2020-11-23] MEDS ORDERED: ONDANSETRON 4 MG/2 ML VIAL IVP STA (13:56)
[2020-11-23 14:11] LABS: Basophils % (A) 0 %; Eosinophils # (A) 0.1 k/uL (0-0.7); Eosinophils % (A) 1 %; HCT 38.3 % (34.0-46.0); HGB 12.9 gm/dL (11.4-16.0); Lymphocytes # (A) 1.1 k/uL (1.0-4.8); Lymphocytes % (A) 8 %; MCH 28.2 pg (25.0-35.0); MCHC 33.7 g/dL (31.0-37.0); MCV 83.8 fL (80.0-100.0); Mean Platelet Volume 7.6; Monocytes # (A) 0.8 k/uL (0-1.0); Monocytes % (A) 6 %; Neutrophils # (A) 11.3 k/uL (1.3-7.7); Neutrophils % (A) 84 %; Platelet Count 240 k/uL (150-450); RBC 4.57 m/uL (3.80-5.40); RDW 14.2 % (11.5-15.5); WBC 13.4 k/uL (3.8-10.6)
[2020-11-23 14:18] LABS: Appearance,Urine Cloudy (Clear); Bacteria,Urine Moderate /hpf; Bilirubin,Urine Negative (Negative); Blood,Urine Trace (Negative); Color,Urine Yellow; Glucose,Urine (UA) Negative (Negative); Hyaline Casts,Urine 1 /lpf (0-2); Ketones,Urine Negative (Negative); Leukocyte Esterase,Urine Large (Negative); Mucus,Urine Occasional /hpf; Nitrite,Urine Negative (Negative); Protein,Urine 1+ (Negative); RBC,Urine 7 /hpf (0-5); Specific Gravity,Urine 1.021 (1.001-1.035); Squamous Epithelial Cell,Urine 4 /hpf (0-4); WBC,Urine 104 /hpf (0-5)
[2020-11-23 14:24] VITALS: RESP 16
[2020-11-23] MEDS ORDERED: ACETAMINOPHEN TAB 500 MG TAB PO STA (14:24)
[2020-11-23 14:39] LABS: ALT 28 U/L (4-34); AST 26 U/L (14-36); African American GFR (CKD) >90 (>60 ml/min/1.73 sqM); Albumin 4.2 g/dL (3.5-5.0); Alkaline Phosphatase 113 U/L (38-126); Amylase 40 U/L (30-110); Anion Gap 10 mmol/L; Blood Urea Nitrogen 8 mg/dL (7-17); Calcium 9.3 mg/dL (8.4-10.2); Carbon Dioxide 22 mmol/L (22-30); Chloride 108 mmol/L (98-107); Glucose 89 mg/dL (74-99); Lipase 15 U/L (23-300); Non-African American GFR(CKD) >90 (>60 ml/min/1.73 sqM); Sodium 140 mmol/L (137-145); Total Bilirubin 0.9 mg/dL (0.2-1.3); Total Protein 7.6 g/dL (6.3-8.2)
[2020-11-23 15:12] VITALS: TEMP 98.7
[2020-11-23] MEDS ORDERED: MORPHINE SULFATE 4 MG/ML SYRINGE IVP STA (15:12)
[2020-11-23] MEDS ORDERED: ACET/COD 300 MG/30 MG STARTER PACK 6 TAB BTL PO STA (15:14)
--- NOTE | 2020-11-23 15:14 | ED ---
Abdominal Pain HPI - General Chief Complaint: Abdominal Pain Stated Complaint: ABD pain Source: patient, RN notes reviewed Mode of arrival: ambulatory Limitations: no limitations - History of Present Illness Initial Comments: 20-year-old female presents emergency Department chief complaint of left-sided abdominal, flank pain. Patient states started about a week ago. Patient states that she's had some nausea no severe vomiting no diarrhea no constipation she has mild dysuria no vaginal bleeding or vaginal discharge no prior abdominal surgeries. Patient states that she's not taking any recent Tylenol Motrin. Patient states that the pain was not going away so she decided to present to the emergency department. - Related Data Home Medications Medication Instructions Recorded Confirmed Acetaminophen Tab [Tylenol Tab] 1,000 mg PO Q6HR PRN 11/23/20 11/23/20 Sleep Aid (Unknown Otc) 1 dose PO HS 11/23/20 11/23/20 Previous Rx's Medication Instructions Recorded Cephalexin [Keflex] 500 mg PO Q6HR #40 cap 11/23/20 Allergies Allergy/AdvReac Type Severity Reaction Status Date / Time ciprofloxacin [From Cipro] Allergy Swelling Verified 11/23/20 13:43 ciprofloxacin HCl Allergy Swelling Verified 11/23/20 13:43 [From Cipro] fluoxetine [From Prozac] Allergy Anaphylaxis Verified 11/23/20 13:43 methylphenidate Allergy Anaphylaxis Verified 11/23/20 13:43 [From Concerta] sertraline HCl [From Zoloft] Allergy Anaphylaxis Verified 11/23/20 13:43 Review of Systems ROS Statement: Those systems with pertinent positive or pertinent negative responses have been documented in the HPI. ROS Other: All systems not noted in ROS Statement are negative. Past Medical History Past Medical History: Asthma, Skin Disorder Additional Past Medical History / Comment(s): excema History of Any Multi-Drug Resistant Organisms: None Reported Past Surgical History: No Surgical Hx Reported Past Anesthesia/Blood Transfusion Reactions: No Reported Reaction Past Psychological History: ADD/ADHD, Anxiety, Bipolar, Depression Smoking Status: Vaper Past Alcohol Use History: None Reported, Occasional Past Drug Use History: None Reported - Past Family History Mother Family Medical History: Hypertension General Exam Limitations: no limitations General appearance: alert, in no apparent distress Head exam: Present: atraumatic, normocephalic, normal inspection Eye exam: Present: normal appearance, PERRL, EOMI. Absent: scleral icterus, conjunctival injection, periorbital swelling ENT exam: Present: normal exam, normal oropharynx, mucous membranes moist Neck exam: Present: normal inspection, full ROM. Absent: tenderness, meningismu s, lymphadenopathy Respiratory exam: Present: normal lung sounds bilaterally. Absent: respiratory distress, wheezes, rales, rhonchi, stridor Cardiovascular Exam: Present: normal rhythm, tachycardia, normal heart sounds. Absent: systolic murmur, diastolic murmur, rubs, gallop, clicks GI/Abdominal exam: Present: soft, tenderness (Mild left-sided), normal bowel sounds. Absent: distended, guarding, rebound, rigid Back exam: Present: CVA tenderness (L). Absent: CVA tenderness (R) Neurological exam: Present: alert Skin exam: Present: warm, dry, intact, normal color. Absent: rash Course Vital Signs 11/23/20 11/23/20 13:02 14:23 Temperature 99.0 F 101.3 F H Pulse Rate 110 H 104 H Respiratory 18 16 Rate Blood Pressure 107/62 104/74 O2 Sat by Pulse 100 100 Oximetry Medical Decision Making - Medical Decision Making Blood work and urinalysis was reviewed. Patient has evidence of air tract infection concern for pyelonephritis. Patient does have improved. Patient discharged on oral antibiotics with close follow-up return parameters were discussed. - Lab Data Result diagrams: 11/23/20 13:42 11/23/20 13:42 Lab Results 11/23/20 11/23/20 11/23/20 Range/Units 13:42 13:42 13:57 WBC 13.4 H (3.8-10.6) k/uL RBC 4.57 (3.80-5.40) m/uL Hgb 12.9 (11.4-16.0) gm/dL Hct 38.3 (34.0-46.0) % MCV 83.8 (80.0-100.0) fL MCH 28.2 (25.0-35.0) pg MCHC 33.7 (31.0-37.0) g/dL RDW 14.2 (11.5-15.5) % Plt Count 240 (150-450) k/uL MPV 7.6 Neutrophils % 84 % Lymphocytes % 8 % Monocytes % 6 % Eosinophils % 1 % Basophils % 0 % Neutrophils # 11.3 H (1.3-7.7) k/uL Lymphocytes # 1.1 (1.0-4.8) k/uL Monocytes # 0.8 (0-1.0) k/uL Eosinophils # 0.1 (0-0.7) k/uL Basophils # 0.0 (0-0.2) k/uL Sodium 140 (137-145) mmol/L Potassium 4.0 (3.5-5.1) mmol/L Chloride 108 H (98-107) mmol/L Carbon Dioxide 22 (22-30) mmol/L Anion Gap 10 mmol/L BUN 8 (7-17) mg/dL Creatinine 0.61 (0.52-1.04) mg/dL Est GFR (CKD-EPI)AfAm >90 (>60 ml/min/1.73 sqM) Est GFR (CKD-EPI)NonAf >90 (>60 ml/min/1.73 sqM) Glucose 89 (74-99) mg/dL Plasma Lactic Acid Yohan (0.7-2.0) mmol/L Calcium 9.3 (8.4-10.2) mg/dL Total Bilirubin 0.9 (0.2-1.3) mg/dL AST 26 (14-36) U/L ALT 28 (4-34) U/L Alkaline Phosphatase 113 (38-126) U/L Total Protein 7.6 (6.3-8.2) g/dL Albumin 4.2 (3.5-5.0) g/dL Amylase 40 (30-110) U/L Lipase 15 L (23-300) U/L Urine Color Yellow Urine Appearance Cloudy H (Clear) Urine pH 6.0 (5.0-8.0) Ur Specific [place] 1.021 (1.001-1.035) Urine Protein 1+ H (Negative) Urine Glucose (UA) Negative (Negative) Urine Ketones Negative (Negative) Urine Blood Trace H (Negative) Urine Nitrite Negative (Negative) Urine Bilirubin Negative (Negative) Urine Urobilinogen 2.0 (<2.0) mg/dL Ur Leukocyte Esterase Large H (Negative) Urine RBC 7 H (0-5) /hpf Urine WBC 104 H (0-5) /hpf Ur Squamous Epith Cells 4 (0-4) /hpf Urine Bacteria Moderate H (None) /hpf Hyaline Casts 1 (0-2) /lpf Urine Mucus Occasional H (None) /hpf Urine HCG, Qual (Not Detectd) 11/23/20 11/23/20 Range/Units 13:57 13:57 WBC (3.8-10.6) k/uL RBC (3.80-5.40) m/uL Hgb (11.4-16.0) gm/dL Hct (34.0-46.0) % MCV (80.0-100.0) fL MCH (25.0-35.0) pg MCHC (31.0-37.0) g/dL RDW (11.5-15.5) % Plt Count (150-450) k/uL MPV Neutrophils % % Lymphocytes % % Monocytes % % Eosinophils % % Basophils % % Neutrophils # (1.3-7.7) k/uL Lymphocytes # (1.0-4.8) k/uL Monocytes # (0-1.0) k/uL Eosinophils # (0-0.7) k/uL Basophils # (0-0.2) k/uL Sodium (137-145) mmol/L Potassium (3.5-5.1) mmol/L Chloride (98-107) mmol/L Carbon Dioxide (22-30) mmol/L Anion Gap mmol/L BUN (7-17) mg/dL Creatinine (0.52-1.04) mg/dL Est GFR (CKD-EPI)AfAm (>60 ml/min/1.73 sqM) Est GFR (CKD-EPI)NonAf (>60 ml/min/1.73 sqM) Glucose (74-99) mg/dL Plasma Lactic Acid Yohan 1.1 (0.7-2.0) mmol/L Calcium (8.4-10.2) mg/dL Total Bilirubin (0.2-1.3) mg/dL AST (14-36) U/L ALT (4-34) U/L Alkaline Phosphatase (38-126) U/L Total Protein (6.3-8.2) g/dL Albumin (3.5-5.0) g/dL Amylase (30-110) U/L Lipase (23-300) U/L Urine Color Urine Appearance (Clear) Urine pH (5.0-8.0) Ur Specific [place] (1.001-1.035) Urine Protein (Negative) Urine Glucose (UA) (Negative) Urine Ketones (Negative) Urine Blood (Negative) Urine Nitrite (Negative) Urine Bilirubin (Negative) Urine Urobilinogen (<2.0) mg/dL Ur Leukocyte Esterase (Negative) Urine RBC (0-5) /hpf Urine WBC (0-5) /hpf Ur Squamous Epith Cells (0-4) /hpf Urine Bacteria (None) /hpf Hyaline Casts (0-2) /lpf Urine Mucus (None) /hpf Urine HCG, Qual Not Detected (Not Detectd) Disposition Clinical Impression: Pyelonephritis Disposition: HOME SELF-CARE Condition: Stable Instructions (If sedation given, give patient instructions): Kidney Infection (ED) Additional Instructions: Please return to the Emergency Department if symptoms worsen or any other concerns. Prescriptions: Cephalexin [Keflex] 500 mg PO Q6HR #40 cap Is patient prescribed a controlled substance at d/c from ED?: No Referrals: Darrell Reyna MD [Primary Care Provider] - 1-2 days Time of Disposition: 15:13
[2020-11-23 15:35] VITALS: BP 111/68; PULSE 100
== END 2020-11-23 15:42 | disposition home or self-care (01) ==
LOC: EC 13:01
DX: N12 Tubulo-interstitial nephritis, not specified as acute or chronic (principal); F17.290 Nicotine dependence, other tobacco product, uncomplicated; Z88.1 Allergy status to other antibiotic agents; Z88.8 Allergy status to other drugs, medicaments and biological substances
CPT/HCPCS: 36415; 80053; 82150; 83605; 83690; 85025; 81001; 81025; 87086; 99284; 96365; 96375 ×3; 96361; J2270; J2405; J0696; J1885

== ENCOUNTER 2021-01-13 10:41 | Emergency (ER) | payer OTHER ==
[2021-01-13 10:57] VITALS: TEMP 98.9
[2021-01-13] MEDS ORDERED: ONDANSETRON 4 MG/2 ML VIAL IVP STA (11:14)
[2021-01-13] MEDS ORDERED: SODIUM CHLORIDE 0.9% 1,000 ML IV STA (11:14)
--- NOTE | 2021-01-13 11:24 | ED ---
Nausea/Vomiting/Diarrhea HPI - General Chief complaint: Nausea/Vomiting/Diarrhea Stated complaint: newly preg - vomiting Time Seen by Provider: 01/13/21 10:58 Source: patient Mode of arrival: ambulatory Limitations: no limitations - History of Present Illness Initial comments: 20-year-old female patient who is approximately 4-5 weeks based on last menstrual period, G4, P3, A0 presents to the emergency department today for evaluation of suprapubic cramping and nausea. States that she started feeling unwell after eating moldy bread yesterday. States that she started having lower abdominal cramping today which concerned her. Denies any abnormal vaginal bleeding or discharge. Denies any hematuria, dysuria, urinary frequency, urinary urgency. Denies fever or chills. Denies any constipation or diarrhea. Patient denies any recent rash, cough, shortness of breath, chest pain, back pain, numbness, tingling, dizziness, weakness, headache, visual changes, or any other complaints. - Related Data Home Medications Medication Instructions Recorded Confirmed No Known Home Medications 01/13/21 01/13/21 Allergies Allergy/AdvReac Type Severity Reaction Status Date / Time ciprofloxacin [From Cipro] Allergy Swelling Verified 01/13/21 11:37 ciprofloxacin HCl Allergy Swelling Verified 01/13/21 11:37 [From Cipro] fluoxetine [From Prozac] Allergy Anaphylaxis Verified 01/13/21 11:37 methylphenidate Allergy Anaphylaxis Verified 01/13/21 11:37 [From Concerta] sertraline HCl [From Zoloft] Allergy Anaphylaxis Verified 01/13/21 11:37 Review of Systems ROS Statement: Those systems with pertinent positive or pertinent negative responses have been documented in the HPI. ROS Other: All systems not noted in ROS Statement are negative. Past Medical History Past Medical History: Asthma, Skin Disorder Additional Past Medical History / Comment(s): excema History of Any Multi-Drug Resistant Organisms: None Reported Past Surgical History: No Surgical Hx Reported Past Anesthesia/Blood Transfusion Reactions: No Reported Reaction Past Psychological History: ADD/ADHD, Anxiety, Bipolar Smoking Status: Vaper Past Alcohol Use History: None Reported, Occasional Past Drug Use History: None Reported - Past Family History Mother Family Medical History: Hypertension General Exam Limitations: no limitations General appearance: alert, in no apparent distress, other (Physical well- developed, well-nourished adult female patient in no acute distress. Vital signs upon presentation are temperature 98.9F, pulse 86, respirations 18, blood pressure 117/70, pulse ox 100% on room air.) Eye exam: Present: normal appearance, PERRL, EOMI. Absent: scleral icterus, conjunctival injection, periorbital swelling ENT exam: Present: normal exam, normal oropharynx, mucous membranes moist Respiratory exam: Present: normal lung sounds bilaterally. Absent: respiratory distress, wheezes, rales, rhonchi, stridor Cardiovascular Exam: Present: regular rate, normal rhythm, normal heart sounds. Absent: systolic murmur, diastolic murmur, rubs, gallop, clicks GI/Abdominal exam: Present: soft, tenderness (Suprapubic), normal bowel sounds. Absent: distended, guarding, rebound, rigid Neurological exam: Present: alert, oriented X3, CN II-XII intact Psychiatric exam: Present: normal affect, normal mood Skin exam: Present: warm, dry, intact, normal color. Absent: rash Course Vital Signs 01/13/21 01/13/21 10:51 11:57 Temperature 98.9 F Pulse Rate 86 Respiratory 18 18 Rate Blood Pressure 117/70 O2 Sat by Pulse 100 Oximetry Medical Decision Making - Medical Decision Making 20-year-old female patient presents to the emergency department today for evaluation of suprapubic cramping and increased nausea. Patient reports being 4-5 weeks . Physical examination is unremarkable. Abdomen soft with some mild tenderness over the suprapubic region. She denies vaginal bleeding or discharge. Labs reviewed and did reveal elevated hCG level at 12,800. Ultrasound of the fetus was obtained and showed a fetus measuring 6 weeks, getting process, heart rate was 118. We discussed results. To be disch arged. Her COURT SECURITY OFFICER for recheck as soon as possible. She will be seeing Dr. Marti. She is instructed follow up with her primary care physician for recheck in 1-2 days. Return parameters were discussed in detail. She verbalizes understanding and agrees with this plan. Case discussed with my atte nding Dr. Jauregui. - Lab Data Result diagrams: 01/13/21 11:23 01/13/21 11:23 Lab Results 01/13/21 01/13/21 01/13/21 Range/Units 11:23 11:23 11:42 WBC 5.3 (3.8-10.6) k/uL RBC 4.58 (3.80-5.40) m/uL Hgb 12.8 (11.4-16.0) gm/dL Hct 38.3 (34.0-46.0) % MCV 83.5 (80.0-100.0) fL MCH 27.9 (25.0-35.0) pg MCHC 33.5 (31.0-37.0) g/dL RDW 14.5 (11.5-15.5) % Plt Count 335 (150-450) k/uL MPV 7.6 Neutrophils % 45 % Lymphocytes % 43 % Monocytes % 6 % Eosinophils % 2 % Basophils % 0 % Neutrophils # 2.4 (1.3-7.7) k/uL Lymphocytes # 2.3 (1.0-4.8) k/uL Monocytes # 0.3 (0-1.0) k/uL Eosinophils # 0.1 (0-0.7) k/uL Basophils # 0.0 (0-0.2) k/uL Sodium 137 (137-145) mmol/L Potassium 4.0 (3.5-5.1) mmol/L Chloride 105 (98-107) mmol/L Carbon Dioxide 21 L (22-30) mmol/L Anion Gap 11 mmol/L BUN 11 (7-17) mg/dL Creatinine 0.56 (0.52-1.04) mg/dL Est GFR (CKD-EPI)AfAm >90 (>60 ml/min/1.73 sqM) Est GFR (CKD-EPI)NonAf >90 (>60 ml/min/1.73 sqM) Glucose 88 (74-99) mg/dL Calcium 9.7 (8.4-10.2) mg/dL Total Bilirubin 0.6 (0.2-1.3) mg/dL AST 18 (14-36) U/L ALT 14 (4-34) U/L Alkaline Phosphatase 59 (38-126) U/L Total Protein 7.8 (6.3-8.2) g/dL Albumin 4.7 (3.5-5.0) g/dL Lipase 27 (23-300) U/L HCG, Quant 65292.9 mIU/mL Urine Color Yellow Urine Appearance Clear (Clear) Urine pH 5.5 (5.0-8.0) Ur Specific [place] 1.026 (1.001-1.035) Urine Protein Negative (Negative) Urine Glucose (UA) Negative (Negative) Urine Ketones Negative (Negative) Urine Blood Negative (Negative) Urine Nitrite Negative (Negative) Urine Bilirubin Negative (Negative) Urine Urobilinogen <2.0 (<2.0) mg/dL Ur Leukocyte Esterase Moderate H (Negative) Urine RBC 1 (0-5) /hpf Urine WBC 5 (0-5) /hpf Ur Squamous Epith Cells 12 H (0-4) /hpf Urine Mucus Few H (None) /hpf - Radiology Data Radiology results: report reviewed Ultrasound was obtained. Report reviewed in its entirety. Impression by Dr. Davis shows single viable intrauterine corresponding to an ultrasound age 6 weeks 1 day with estimated date of delivery 09/07/2021. Disposition Clinical Impression: Nausea/vomiting in , Abdominal pain during Disposition: HOME SELF-CARE Condition: Good Instructions (If sedation given, give patient instructions): Acute Nausea and Vomiting (ED), Abdominal Pain in (ED) Additional Instructions: Follow-up with the primary care physician for recheck in 1-[address] with [address] SECURITY OFFICER for recheck as soon as possible. Return to the emergency department for any new, worsening, or concerning symptoms. Is patient prescribed a controlled substance at d/c from ED?: No Referrals: None,Stated [Primary Care Provider] - 1-2 days Time of Disposition: 13:13
[2021-01-13 11:44] LABS: Basophils % (A) 0 %; Eosinophils # (A) 0.1 k/uL (0-0.7); Eosinophils % (A) 2 %; HCT 38.3 % (34.0-46.0); HGB 12.8 gm/dL (11.4-16.0); Lymphocytes # (A) 2.3 k/uL (1.0-4.8); Lymphocytes % (A) 43 %; MCH 27.9 pg (25.0-35.0); MCHC 33.5 g/dL (31.0-37.0); MCV 83.5 fL (80.0-100.0); Mean Platelet Volume 7.6; Monocytes # (A) 0.3 k/uL (0-1.0); Monocytes % (A) 6 %; Neutrophils # (A) 2.4 k/uL (1.3-7.7); Neutrophils % (A) 45 %; Platelet Count 335 k/uL (150-450); RBC 4.58 m/uL (3.80-5.40); RDW 14.5 % (11.5-15.5); WBC 5.3 k/uL (3.8-10.6)
[2021-01-13 12:05] LABS: ALT 14 U/L (4-34); AST 18 U/L (14-36); African American GFR (CKD) >90 (>60 ml/min/1.73 sqM); Albumin 4.7 g/dL (3.5-5.0); Alkaline Phosphatase 59 U/L (38-126); Anion Gap 11 mmol/L; Blood Urea Nitrogen 11 mg/dL (7-17); Calcium 9.7 mg/dL (8.4-10.2); Carbon Dioxide 21 mmol/L (22-30); Chloride 105 mmol/L (98-107); Glucose 88 mg/dL (74-99); Lipase 27 U/L (23-300); Non-African American GFR(CKD) >90 (>60 ml/min/1.73 sqM); Sodium 137 mmol/L (137-145); Total Bilirubin 0.6 mg/dL (0.2-1.3); Total Protein 7.8 g/dL (6.3-8.2)
[2021-01-13 12:21] LABS: Appearance,Urine Clear (Clear); Bilirubin,Urine Negative (Negative); Blood,Urine Negative (Negative); Color,Urine Yellow; Glucose,Urine (UA) Negative (Negative); Ketones,Urine Negative (Negative); Leukocyte Esterase,Urine Moderate (Negative); Mucus,Urine Few /hpf; Nitrite,Urine Negative (Negative); PH, Urine 5.5 (5.0-8.0); Protein,Urine Negative (Negative); RBC,Urine 1 /hpf (0-5); Specific Gravity,Urine 1.026 (1.001-1.035); Squamous Epithelial Cell,Urine 12 /hpf (0-4); Urobilinogen,Urine <2.0 mg/dL (<2.0); WBC,Urine 5 /hpf (0-5)
--- NOTE | 2021-01-13 12:42 | US ---
EXAMINATION TYPE: Transabdominal DATE OF EXAM: 01/13/2021 12:27 PM COMPARISON: NONE CLINICAL HISTORY: Suprapubic cramping. left pelvic pain EXAM PERFORMED: Transabdominal (TA) EXAM MEASUREMENTS: GESTATIONAL AGE / DATING Physician Established: Not yet established Dates by LMP: LMP unknown Dates by First Scan: No previous this is first scan Dates by Current Scan for: (6 weeks/1 days) EDC: 09/07/21 MATERNAL ANATOMY Uterus: 9.5 x 6.2 x 6.9cm Right Ovary: 2.3 x 1.6 x 2.1cm Left Ovary: 3.6 x 2.1 x 2.5cm Post CDS / Adnexa: appears wnl Presence of free fluid: no Presence of corpus luteal cyst: yes, hypoechoic area left ovary = 2.8 x 2.1 x 2.2cm GESTATION / SURVEY CRL: 0.5cm (6 weeks/1 days) Yolk Sac (normal less than 6mm): 0.3cm Heart Rate: 118 bpm Rhythm: Normal IUP: Viable IUP Date of LMP: beginning of November 2020 Beta HcG (if available): Not available at this time IMPRESSION: Single viable intrauterine corresponding to an ultrasound age 6 weeks 1 day with estimated date of delivery 09/07/2021 by today's exam.
[2021-01-13 13:07] LABS: HCG,Quantitative Serum 12890.9 mIU/mL
[2021-01-13 13:30] VITALS: BP 108/65; PULSE 85; RESP 16
== END 2021-01-13 13:30 | disposition home or self-care (01) ==
LOC: EC 10:41
DX: O21.9 Vomiting of pregnancy, unspecified (principal); O26.891 Other specified pregnancy related conditions, first trimester; J45.909 Unspecified asthma, uncomplicated; O99.891 Other specified diseases and conditions complicating pregnancy; Z3A.01 Less than 8 weeks gestation of pregnancy
CPT/HCPCS: 36415; 80053; 83690; 85025; 81001; 84702; 76801; 99284; 96360; J2405

== ENCOUNTER → 2021-01-28 | Outpatient (CLI) | payer OTHER ==
--- NOTE | 2021-01-28 14:41 | US ---
EXAMINATION TYPE: US OB <= 14 wk twins DATE OF EXAM: 01/28/2021 COMPARISON: US 2020 CLINICAL HISTORY: Z36 Confirm Dates. EXAM PERFORMED: Transabdominal (TA) EXAM MEASUREMENTS: GESTATIONAL AGE / DATING Physician Established: Not established yet Dates by LMP: Unknown Dates by First Scan: ( 8 weeks/2 days) EDC: 09/07/2021 Dates by Current Scan for Baby A: (8 weeks/0 days) EDC: 09/09/2021 Dates by Current Scan for Baby B: (7 weeks/6 days) EDC: 09/10/2021 MATERNAL ANATOMY Uterus: 12.4 x 5.0 x 7.6cm Right Ovary: 4.0 x 1.3 x 2.0cm Left Ovary: 3.2 x 2.1 x 3.0cm Post CDS / Adnexa: wnl Presence of free fluid: no Presence of corpus luteal cyst: left ovary: 1.9cm Presence of subchorionic bleed: no Presence of two separate gestational sacs: no GESTATION / SURVEY TWIN A CRL: 1.6cm (8wks/0days) Yolk Sac (normal less than 6mm): 4.0mm Heart Rate: 182 bpm Rhythm: Normal IUP: Viable IUP TWIN B CRL: 1.5cm (7wks/6days) Yolk Sac (normal less than 6mm): 4.4mm Heart Rate: 181 bpm Rhythm: Normal IUP: Viable IUP Date of LMP: Unknown Beta HcG (if available): Not available at time of exam. IMPRESSION: 1. Twin gestation. Cardiac activity of twin A is 182 bpm. Cardiac activity twin B is 181 bpm. 2. Estimated gestational age based on crown-rump length of twin a is 8 weeks 0 days gestation. Estima sal gestational age based on crown-rump length for twin B is 7 weeks 6 days gestation.
== END ==
LOC: RADUSWWP 13:37
PROVIDERS: ATTEND Obstetrics & Gynecology
DX: Z36.89 Encounter for other specified antenatal screening (principal); Z3A.08 8 weeks gestation of pregnancy
CPT/HCPCS: 76801; 76802

== ENCOUNTER 2021-03-26 13:11 | Emergency (ER) | payer OTHER ==
[2021-03-26 13:25] VITALS: TEMP 98.3
[2021-03-26] MEDS ORDERED: ACETAMINOPHEN TAB 325 MG TAB PO STA (14:19)
[2021-03-26 14:51] LABS: Basophils % (A) 0 %; Eosinophils # (A) 0.2 k/uL (0-0.7); Eosinophils % (A) 1 %; HCT 33.6 % (34.0-46.0); HGB 11.8 gm/dL (11.4-16.0); Lymphocytes # (A) 1.6 k/uL (1.0-4.8); Lymphocytes % (A) 11 %; MCH 29.3 pg (25.0-35.0); MCHC 35.2 g/dL (31.0-37.0); MCV 83.2 fL (80.0-100.0); Mean Platelet Volume 7.6; Monocytes # (A) 0.5 k/uL (0-1.0); Monocytes % (A) 4 %; Neutrophils # (A) 11.8 k/uL (1.3-7.7); Neutrophils % (A) 83 %; Platelet Count 311 k/uL (150-450); RBC 4.04 m/uL (3.80-5.40); WBC 14.3 k/uL (3.8-10.6)
[2021-03-26 14:58] LABS: Appearance,Urine Turbid (Clear); Bacteria,Urine Rare /hpf; Bilirubin,Urine Negative (Negative); Blood,Urine Large (Negative); Color,Urine Yellow; Glucose,Urine (UA) Negative (Negative); Ketones,Urine Negative (Negative); Leukocyte Esterase,Urine Large (Negative); Mucus,Urine Few /hpf; Nitrite,Urine Negative (Negative); PH, Urine 6.5 (5.0-8.0); Protein,Urine 2+ (Negative); RBC,Urine >182 /hpf (0-5); Squamous Epithelial Cell,Urine 17 /hpf (0-4); Urobilinogen,Urine <2.0 mg/dL (<2.0)
[2021-03-26 15:09] LABS: ALT 13 U/L (4-34); AST 20 U/L (14-36); African American GFR (CKD) >90 (>60 ml/min/1.73 sqM); Albumin 3.6 g/dL (3.5-5.0); Alkaline Phosphatase 81 U/L (38-126); Anion Gap 8 mmol/L; Blood Urea Nitrogen 8 mg/dL (7-17); Calcium 9.1 mg/dL (8.4-10.2); Carbon Dioxide 22 mmol/L (22-30); Chloride 106 mmol/L (98-107); Glucose 75 mg/dL (74-99); Non-African American GFR(CKD) >90 (>60 ml/min/1.73 sqM); Potassium 3.9 mmol/L (3.5-5.1); Sodium 136 mmol/L (137-145); Total Bilirubin 0.5 mg/dL (0.2-1.3); Total Protein 6.6 g/dL (6.3-8.2)
--- NOTE | 2021-03-26 16:05 | US ---
EXAMINATION TYPE: US OB >= 14 wk twins DATE OF EXAM: 03/26/2021 COMPARISON: US CLINICAL HISTORY: bleeding, cramping x today. GESTATIONAL AGE / DATING Physician Established: (16 weeks/3 days) EDC: 09/07/2021 Dates by LMP: unknown Dates by First Scan: (16 weeks/3 days) EDC: 09/07/2021 Dates by Current Scan for Baby A: (16 weeks/2 days) EDC: 09/08/2021 Dates by Current Scan for Baby B: (16 weeks/6 days) EDC: 09/04/2021 GENERAL TWIN SURVEY TWIN A LOCATION in regards to maternal abd: vertex, TWIN B LOCATION in regards to maternal abd: vertex MEMBRANE SEEN: Yes CERVICAL LENGTH (transabdominal; norm > 3.0cm): 3.4 cm TWIN A: SURVEY/BIOMETRY PLACENTA: Posterior PREVIA: No previa DENNIS:? 7.1 cm?5 cm fluid pocket seen, difficult to accurately assess. PRESENTATION: Vertex LIE: Transverse with head maternal L BPD: 3.4 cm 16 weeks / 4 days HC: 12.6 cm 16 weeks / 3 days AC: 9.9 cm 16 weeks / 0 days FL: 2.0 cm 16 weeks / 0 days ESTIMATED WEIGHT IN GRAMS: 144.58 grams ESTIMATED WEIGHT IN LBS/OZS: 0 lbs. 5 oz. WEIGHT PERCENTAGE BASED ON ESTABLISHED DATES: 22% HC/AC: 1.3 Normal FL/AC: 20.4 Normal HEART RATE: 157 bpm RHYTHM: Normal TWIN B: SURVEY/BIOMETRY PRESENTATION: Vertex LIE: Transverse with head maternal L. DENNIS: 9.8 cm, large fluid pocket noted. BPD: 3.6 cm 17 weeks / 1 days HC: 13.2 cm 16 weeks / 5 days AC: 10.8 cm 16 weeks / 5 days FL: 2.2 cm 16 weeks / 5 days ESTIMATED WEIGHT IN GRAMS: 166.57 grams ESTIMATED WEIGHT IN LBS/OZS: 0 lbs. 6 oz. WEIGHT PERCENTAGE BASED ON ESTABLISHED DATES: 62% HC/AC: 1.2 Normal FL/AC: 17.1 Normal HEART RATE: 153 bpm RHYTHM: Normal Growth according to dates. Cervix view shows some apparent shadowing on images submitted. IMPRESSION: Twin viable intrauterine pregnancies corresponding to ultrasound age for twin a 16 weeks 2 days with estimated date of delivery 09/08/2021 and for twin B 16 weeks 6 days with estimated date of delivery 09/04/2021. There are some limitations to visualization of the cervix, amniotic fluid ind ex as described for twin A.
--- NOTE | 2021-03-26 17:13 | ED ---
Abdominal Pain HPI - General Chief Complaint: Abdominal Pain Stated Complaint: 16wks preg, spotting Time Seen by Provider: 03/26/21 13:29 Source: patient, family Mode of arrival: ambulatory Limitations: no limitations - History of Present Illness Initial Comments: Patient is a 20-year-old female, currently 16 weeks with twins, presenting to the emergency Department with complaints of vaginal spotting and lower abdominal cramping that started 1 hour prior to arrival. Patient is , her MEAT WASHER is Dr. Gusman. Patient also sees a high wrist Dr. Neelam Marquez. Patient states she noticed some vaginal bleeding at this morning when she woke u p and went to the restroom. She states she feels like it was pinkish in color, dark red. She states she is having to wear pain a liner but is not having heavy bleeding. She describes the cramping as on both sides of her abdomen. She denies any fevers or chills, no nausea, she has had some vomiting throughout this . No diarrhea. She denies any dysuria. She has no further complaints at this time. - Related Data Home Medications Medication Instructions Recorded Confirmed Albuterol Sulfate [Proair Hfa] 1 - 2 puff INHALATION RT-Q6H PRN 03/26/21 Ondansetron [Zofran] 4 mg PO Q8H PRN 03/26/21 03/26/21 Pnv,Calcium 72/Iron/Folic Acid 1 tab PO DAILY 03/26/21 03/26/21 [ Plus Tablet] Allergies Allergy/AdvReac Type Severity Reaction Status Date / Time ciprofloxacin [From Cipro] Allergy Swelling Verified 03/26/21 15:04 ciprofloxacin HCl Allergy Swelling Verified 03/26/21 15:04 [From Cipro] fluoxetine [From Prozac] Allergy Anaphylaxis Verified 03/26/21 15:04 methylphenidate Allergy Anaphylaxis Verified 03/26/21 15:04 [From Concerta] sertraline HCl [From Zoloft] Allergy Anaphylaxis Verified 03/26/21 15:04 Review of Systems ROS Statement: Those systems with pertinent positive or pertinent negative responses have been documented in the HPI. ROS Other: All systems not noted in ROS Statement are negative. Past Medical History Past Medical History: Asthma, Skin Disorder Additional Past Medical History / Comment(s): excema History of Any Multi-Drug Resistant Organisms: None Reported Past Surgical History: No Surgical Hx Reported Past Anesthesia/Blood Transfusion Reactions: No Reported Reaction Past Psychological History: ADD/ADHD, Anxiety, Bipolar Smoking Status: Former smoker Past Alcohol Use History: None Reported Past Drug Use History: None Reported - Past Family History Mother Family Medical History: Hypertension General Exam - General Exam Comments Initial Comments: GENERAL: Patient is well-developed and well-nourished. Patient is nontoxic and in no acute distress. HEAD: Atraumatic, normocephalic. EYES: Pupils equal round and reactive to light, extraocular movements intact, sclera anicteric, conjunctiva are normal. Eyelids were unremarkable. ENT: TMs normal, nares patent, oropharynx clear without exudates. Moist mucous membranes. NECK: Normal range of motion, supple without lymphadenopathy or JVD. LUNGS: Unlabored respirations. Breath sounds clear to auscultation bilaterally and equal. No wheezes rales or rhonchi. HEART: Regular rate and rhythm without murmurs, rubs or gallops. ABDOMEN: Soft, mild lower abdominal discomfort with palpation normoactive bowel sounds. No guarding, no rebound. No masses appreciated. MUSCULOSKELETAL: Normal extremities with adequate strength and normal range of motion, no pitting or edema. No clubbing or cyanosis. NEUROLOGICAL: Patient is alert and oriented x 3. Motor and sensory are also intact. Cranial nerves II through XII grossly intact. Symmetrical smile. Normal speech, normal gait. PSYCH: Normal mood, normal affect. SKIN: Warm, Dry, normal turgor, no rashes or lesions noted. Limitations: no limitations External exam: Present: normal external exam Speculum exam: Present: vaginal bleeding (Very small amount of dark colored blood in the vaginal vault, no active bleeding at this time.) By manual exam: Present: normal by manual exam Course Vital Signs 03/26/21 03/26/21 03/26/21 13:23 16:24 17:32 Temperature 98.3 F 98.3 F Pulse Rate 94 88 57 L Respiratory 18 20 18 Rate Blood Pressure 92/62 99/56 115/70 O2 Sat by Pulse 98 99 97 Oximetry Medical Decision Making - Medical Decision Making Patient is a 20-year-old female here with complaints of vaginal spotting and lower abdominal cramping started about an hour prior to arrival. She is currently 16 weeks with twins. MEAT WASHER is Dr. Gusman. Sees a high risk doctor in [place]. Her vaginal exam reveals no active bleeding, minimal amount of blood in her vaginal vault. Her lab work is unremarkable, urine shows no evidence of infection. Ultrasound today shows 2 viable IUP's, heart rates are within normal limits, no acute process seen at this time. I did consult with Dr. Stephenson who is covering for today, and he is okay with pat ient being discharged home. She will have pelvic rest. Patient doesn't appointment with her high risk doctor on Monday, she will continue with that appointment as normal. Patient is in agreement this plan of care. Strict return parameters were discussed with the patient and she verbalized unders tanding. Case discussed with Dr. Dugan. - Lab Data Result diagrams: 03/26/21 14:27 03/26/21 14:27 Lab Results 03/26/21 03/26/21 03/26/21 Range/Units 14:27 14: 14: WBC 14.3 H (3.8-10.6) k/uL RBC 4.04 (3.80-5.40) m/uL Hgb 11.8 (11.4-16.0) gm/dL Hct 33.6 L (34.0-46.0) % MCV 83.2 (80.0-100.0) fL MCH 29.3 (25.0-35.0) pg MCHC 35.2 (31.0-37.0) g/dL RDW 13.0 (11.5-15.5) % Plt Count 311 (150-450) k/uL MPV 7.6 Neutrophils % 83 % Lymphocytes % 11 % Monocytes % 4 % Eosinophils % 1 % Basophils % 0 % Neutrophils # 11.8 H (1.3-7.7) k/uL Lymphocytes # 1.6 (1.0-4.8) k/uL Monocytes # 0.5 (0-1.0) k/uL Eosinophils # 0.2 (0-0.7) k/uL Basophils # 0.0 (0-0.2) k/uL Sodium 136 L (137-145) mmol/L Potassium 3.9 (3.5-5.1) mmol/L Chloride 106 (98-107) mmol/L Carbon Dioxide 22 (22-30) mmol/L Anion Gap 8 mmol/L BUN 8 (7-17) mg/dL Creatinine 0.47 L (0.52-1.04) mg/dL Est GFR (CKD-EPI)AfAm >90 (>60 ml/min/1.73 sqM) Est GFR (CKD-EPI)NonAf >90 (>60 ml/min/1.73 sqM) Glucose 75 (74-99) mg/dL Calcium 9.1 (8.4-10.2) mg/dL Total Bilirubin 0.5 (0.2-1.3) mg/dL AST 20 (14-36) U/L ALT 13 (4-34) U/L Alkaline Phosphatase 81 (38-126) U/L Total Protein 6.6 (6.3-8.2) g/dL Albumin 3.6 (3.5-5.0) g/dL Urine Color Yellow Urine Appearance Turbid H (Clear) Urine pH 6.5 (5.0-8.0) Ur Specific [place] 1.020 (1.001-1.035) Urine Protein 2+ H (Negative) Urine Glucose (UA) Negative (Negative) Urine Ketones Negative (Negative) Urine Blood Large H (Negative) Urine Nitrite Negative (Negative) Urine Bilirubin Negative (Negative) Urine Urobilinogen <2.0 (<2.0) mg/dL Ur Leukocyte Esterase Large H (Negative) Urine RBC >182 H (0-5) /hpf Ur Squamous Epith Cells 17 H (0-4) /hpf Urine Bacteria Rare H (None) /hpf Urine Mucus Few H (None) /hpf Blood Type Blood Type Recheck Bld Type Recheck Status 03/26/21 Range/Units 14:28 WBC (3.8-10.6) k/uL RBC (3.80-5.40) m/uL Hgb (11.4-16.0) gm/dL Hct (34.0-46.0) % MCV (80.0-100.0) fL MCH (25.0-35.0) pg MCHC (31.0-37.0) g/dL RDW (11.5-15.5) % Plt Count (150-450) k/uL MPV Neutrophils % % Lymphocytes % % Monocytes % % Eosinophils % % Basophils % % Neutrophils # (1.3-7.7) k/uL Lymphocytes # (1.0-4.8) k/uL Monocytes # (0-1.0) k/uL Eosinophils # (0-0.7) k/uL Basophils # (0-0.2) k/uL Sodium (137-145) mmol/L Potassium (3.5-5.1) mmol/L Chloride (98-107) mmol/L Carbon Dioxide (22-30) mmol/L Anion Gap mmol/L BUN (7-17) mg/dL Creatinine (0.52-1.04) mg/dL Est GFR (CKD-EPI)AfAm (>60 ml/min/1.73 sqM) Est GFR (CKD-EPI)NonAf (>60 ml/min/1.73 sqM) Glucose (74-99) mg/dL Calcium (8.4-10.2) mg/dL Total Bilirubin (0.2-1.3) mg/dL AST (14-36) U/L ALT (4-34) U/L Alkaline Phosphatase (38-126) U/L Total Protein (6.3-8.2) g/dL Albumin (3.5-5.0) g/dL Urine Color Urine Appearance (Clear) Urine pH (5.0-8.0) Ur Specific [place] (1.001-1.035) Urine Protein (Negative) Urine Glucose (UA) (Negative) Urine Ketones (Negative) Urine Blood (Negative) Urine Nitrite (Negative) Urine Bilirubin (Negative) Urine Urobilinogen (<2.0) mg/dL Ur Leukocyte Esterase (Negative) Urine RBC (0-5) /hpf Ur Squamous Epith Cells (0-4) /hpf Urine Bacteria (None) /hpf Urine Mucus (None) /hpf Blood Type O Positive Blood Type Recheck O Pos Bld Type Recheck Status No Disposition Clinical Impression: Vaginal bleeding during , Abdominal cramping Disposition: HOME SELF-CARE Condition: Stable Instructions (If sedation given, give patient instructions): Threatened Miscarriage (ED) Additional Instructions: Please return to the Emergency Department if symptoms worsen or any other concerns. Please follow-up with your high risks MEAT WASHER on Monday as discussed. Pelvic rest, no intercourse, no heavy lifting until follow-up. Is patient prescribed a controlled substance at d/c from ED?: No Referrals: None,Stated [Primary Care Provider] - 1-2 days Time of Disposition: 17:49
[2021-03-26 17:33] VITALS: BP 115/70; PULSE 57; RESP 18
== END 2021-03-26 17:50 | disposition home or self-care (01) ==
LOC: EC 13:11
DX: O20.9 Hemorrhage in early pregnancy, unspecified (principal); O26.892 Other specified pregnancy related conditions, second trimester; O99.512 Diseases of the respiratory system complicating pregnancy, second trimester; J45.909 Unspecified asthma, uncomplicated; Z87.891 Personal history of nicotine dependence; Z3A.16 16 weeks gestation of pregnancy
CPT/HCPCS: 36415; 76805; 76810; 80053; 81001; 85025; 86900; 86901; 99284

== ENCOUNTER 2021-04-04 20:58 | Outpatient (CLI) | payer OTHER ==
--- NOTE | 2021-04-04 22:07 | US ---
EXAMINATION TYPE: US OB limited DATE OF EXAM: 04/04/2021 COMPARISON: NONE CLINICAL HISTORY: Twin Demise . Patient was told this week she has twin demise at [facility], patient was using pocket doppler tonight and detected what she thought was a heart beat. Asses s heartbeat on twin gestation was ordered EXAM PERFORMED: OBTA - TWINS GESTATIONAL AGE / DATING Physician Established: (17 weeks/3 days) EDC: 09/07/2021 No growth performed on today?s study per ordering physician Fetus A: HEART RATE: 0 bpm Fetus B: HEART RATE: 0 bpm No cardiac activity was detected tonight. IMPRESSION: There is intrauterine twin demise.
[2021-04-04 22:31] VITALS: BP 114/70; PULSE 112; RESP 18; TEMP 97.2
--- NOTE | 2021-04-05 08:26 | P.MSEPDOC ---
Presenting Problems - Arrival Data Date of Arrival on Unit: 04/04/21 Time of Arrival on Unit: 20:57 Mode of Transport: Ambulatory - Complaint OB-Reason for Admission/Chief Complaint: Other Comment: pt scheduled for demise induction tomorrow, and pt states that she has an at home doppler and she thinks she found a heart beat Medical History - Information : 4 Para: 3 Term: 3 : 0 Abortions: Spontaneous or Elective: 0 Number of Living Children: 3 - Gestational Age Gestational Age by TAMMI (wks/days): 17 Weeks and 5 Days Review of Systems - Review of Systems Constitutional: No problems Breast: No problems ENT: No problems Cardiovascular: No problems Respiratory: No problems Gastrointestinal: No problems Genitourinary: No problems Musculoskeletal: No problems Neurological: No problems Skin: No problems Vital Signs - Temperature Temperature: 97.2 F Temperature Source: Temporal Artery Scan - Pulse Right Pulse Rate: 112 Pulse Assessment Method: Pulse Oximetry - Respirations Respiratory Rate: 18 O2 Sat by Pulse Oximetry: 99 - Blood Pressure Right Arm Blood Pressure: 114/70 Blood Pressure Mean: 84 Blood Pressure Source: Automatic Cuff Medical Screen Scoring (Pre) - Cervical Exam Dilation: Exam Deferred - Uterine Contractions Frequency: N/A Duration: N/A Intensity: N/A - Maternal Vital Signs Maternal Temperature: N/A Maternal Blood Pressure: N/A Signs of Preeclampsia: N/A Maternal Respirations: N/A - Maternal Trauma Maternal Trauma: N/A - Total Score - Baby A Total Score - Baby A: 0 - Total Score - Baby B Total Score - Baby B: 0 - Total Score - Baby C Total Score - Baby C: 0 - Level of Risk - Baby A Level of Risk - Baby A: Low (0-5) - Level of Risk - Baby B Level of Risk - Baby B: Low (0-5) - Level of Risk - Baby C Level of Risk - Baby C: Low (0-5) Physician Notification (Pre) - Physician Notified Physician Notified Date: 04/04/21 Physician Notified Time: 21:43 - Notification Comment Comment: spoke with Dr Piper extensively about this pt, reported on dopper hr that was. consistent with pts, and that there is now u/s confirmation that both twins are demised. reported that pt is now very tearful, doesn't want to come for induction, wants to see. Dr Gusman in the office. Dr Piper ok with whaterver pt decides, but RN to educate on. risk of infection, bleeding, and other complications. if pt doesn't want to be induced,. she needs to call the office at 0900 to make an appt. Dr Piper states the other option would be for pt. to come for induction time, not have anything started, and speak with Dr Gusman before. induction is started. Disposition - Disposition OB Disposition: Discharge to home, Written follow up instructions reviewed Discharge Date: 04/04/21 Discharge Time: 22:05 I agree with the RN Medical Screening Exam: Yes Case reviewed; plan agreed upon as documented in EMR&OBIX.: Yes Diagnosis: MISSED
== END 2021-04-04 22:05 | disposition home or self-care (01) ==
LOC: FBPOP 20:58
PROVIDERS: ATTEND Obstetrics & Gynecology
DX: O02.1 Missed abortion (principal); Z3A.17 17 weeks gestation of pregnancy; Z88.2 Allergy status to sulfonamides; Z88.8 Allergy status to other drugs, medicaments and biological substances
CPT/HCPCS: 76815; G0463; 99215

== ENCOUNTER 2021-04-05 06:22 | Observation (INO) | payer OTHER ==
[2021-04-05] MEDS ORDERED: LACTATED RINGERS 1,000 ML IV SCH (06:45)
--- NOTE | 2021-04-05 09:02 | P.HPOB ---
History of Present Illness H&P Date: 04/05/21 Chief Complaint: demise twins Patient is 20-year-old at 17 weeks gestation who arrives for induction of labor for demise at 17 weeks. She was comanagement with maternal- medicine for mono amniotic diet amniotic twins. Last week it was noted that one of the babies had and she was referred to [facility] for a consultation and at that time on Monday of last week the second baby was noted to be that as well. We did talk last week about possible induction earlier and she was scheduled for today. Today in labor and delivery she is declining induction and wants to try and do it on Monday instead of today. Had considered using RU-486 but I am unable to find the medication in town. We'll plan a misoprostol induction on Monday. She is aware this may take a long time and there is at increased risk of placental separation issues potentially requiring a D&C. Risks/benefits and alternatives were reviewed with the patient in detail. I did offer to transfer her or refer her to a surgeon in [place] who may opt for a dilation and evacuation as a alternative but she has declined this option. We will discharge her home today and bring her back on Monday. I feel that this is likely still safe, she had actual wanted to defer the induction all the way until next Monday but I don't feel that 2 week timeframe is necessarily safe for her with infection risks as well as possible blood coagulation risks also if we wait then there'll be significant maceration of the fetuses. Past Medical History Past Medical History: Asthma, Skin Disorder Additional Past Medical History / Comment(s): excema History of Any Multi-Drug Resistant Organisms: None Reported Past Surgical History: No Surgical Hx Reported Past Anesthesia/Blood Transfusion Reactions: No Reported Reaction Smoking Status: Never smoker - Past Family History Mother Family Medical History: Hypertension Medications and Allergies Home Medications Medication Instructions Recorded Confirmed Type Pnv,Calcium 72/Iron/Folic Acid 1 tab PO DAILY 03/26/21 04/05/21 History [ Plus Tablet] Allergies Allergy/AdvReac Type Severity Reaction Status Date / Time methylphenidate Allergy Anaphylaxis Verified 04/05/21 06:41 [From Concerta] sertraline HCl [From Zoloft] Allergy Anaphylaxis Verified 04/05/21 06:41 Exam Osteopathic Statement: *. No significant issues noted on an osteopathic structural exam other than those noted in the History and Physical/Consult. Intake and Output 04/04/21 04/05/21 04/05/21 22:59 06:59 14:59 Other: Weight 57.153 kg
--- NOTE | 2021-04-05 09:11 | P.DS ---
Providers Date of admission: 04/05/21 06:22 Expected date of discharge: 04/05/21 Attending physician: Virgilio Gusman Primary care physician: Stated None Hospital Course: We'll plan discharged home now with follow-up on Monday. A prescription for RU-486 was sent to her pharmacy and she can take that at any point to wean now and 24 hours prior to induction if we can obtain the medication. I will explain this to her as we discharge her. She may end up having some cramping and start bleeding and fattest case and she is to return to labor and delivery. Otherwise all questions are answered for her at this time and will plan induction on Monday. Patient Condition at Discharge: Good Plan - Discharge Summary New Discharge Prescriptions: New Mifepristone [Mifeprex] 200 mg PO ONCE #1 tablet No Action Pnv,Calcium 72/Iron/Folic Acid [ Plus Tablet] 1 tab PO DAILY Discharge Medication List Pnv,Calcium 72/Iron/Folic Acid [ Plus Tablet] 1 tab PO DAILY 03/26/21 [History] Mifepristone [Mifeprex] 200 mg PO ONCE #1 tablet 04/05/21 [Rx] Follow up Appointment(s)/Referral(s): Virgilio Gusman DO [Doctor of Osteopathic Medicine] - 1 Week Activity/Diet/Wound Care/Special Instructions: Return with any increase in bleeding or cramping or on Monday morning for induction Discharge Disposition: HOME SELF-CARE
== END 2021-04-05 09:20 | disposition home or self-care (01) ==
LOC: INTOOBSV 06:22 → 4FBP 06:22 → UNDODISIN 09:20
PROVIDERS: ADMIT Obstetrics & Gynecology; ATTEND Obstetrics & Gynecology
DX: O02.1 Missed abortion (principal); Z3A.17 17 weeks gestation of pregnancy; J45.909 Unspecified asthma, uncomplicated; O99.52 Diseases of the respiratory system complicating childbirth
CPT/HCPCS: 76815; G0463; G0378; G0379; 99215

== ENCOUNTER 2021-04-07 07:00 | Observation (INO) | payer OTHER ==
[2021-04-07 07:34] VITALS: BP 134/80; PULSE 126; RESP 16; TEMP 98.4
[2021-04-07] MEDS ORDERED: ONDANSETRON 4 MG/2 ML VIAL IVP PRN (07:48)
[2021-04-07] MEDS ORDERED: OXYTOCIN 30 UNITS/500 ML NS 30 UNIT in SALINE 1 500ML.BAG IV SCH (08:00)
[2021-04-07] MEDS ORDERED: LACTATED RINGERS 1,000 ML IV SCH (08:00)
[2021-04-07] MEDS: miSOPROStoL 200 MCG TAB VAGINAL SCH ×4 (08:11→20:31)
[2021-04-07 08:26] LABS: Basophils % (A) 0 %; Eosinophils # (A) 0.1 k/uL (0-0.7); Eosinophils % (A) 1 %; HCT 31.8 % (34.0-46.0); HGB 10.9 gm/dL (11.4-16.0); Lymphocytes # (A) 3.5 k/uL (1.0-4.8); Lymphocytes % (A) 25 %; MCHC 34.3 g/dL (31.0-37.0); MCV 81.4 fL (80.0-100.0); Mean Platelet Volume 7.2; Monocytes # (A) 0.9 k/uL (0-1.0); Monocytes % (A) 6 %; Neutrophils # (A) 9.3 k/uL (1.3-7.7); Neutrophils % (A) 66 %; Platelet Count 382 k/uL (150-450); RBC 3.91 m/uL (3.80-5.40); RDW 12.6 % (11.5-15.5); WBC 14.1 k/uL (3.8-10.6)
[2021-04-07] MEDS: METOCLOPRAMIDE 5 MG/ML 2 ML VIAL IVP PRN ×2 (08:59→16:39)
[2021-04-07] MEDS: BUTORPHANOL 1 MG/ML 1 ML VIAL IV PRN ×6 (12:22→22:31)
[2021-04-07] MEDS ORDERED: KETOROLAC 15 MG/ML 1 ML VIAL IVP STA (17:09)
--- NOTE | 2021-04-07 23:29 | P.PN ---
Progress Note - Text Progress Note Date: 04/07/21 Patient is seen and evaluated this evening. She has received 4 doses of Cytotec today and has had an increasing cramping but no real cervical change. She feels no pressure no other issues or complaints. She does not have an epidural at this time. She would like to hold off on midnight dose of Cytotec and trying get at least a couple of hours sleep and have some liquid diet to try and give her some strength that she is feeling very weak from not eating all day. This seems relatively reasonable since we have not had any change at this point. She is already aware that this may be multiple day process. All questions are answered for her and generally she is comfortable at this time. We'll plan to allow her to get some sleep tonight and then I'll return the morning and restart the Cytotec induction.
--- NOTE | 2021-04-07 23:37 | P.HPOB ---
History of Present Illness H&P Date: 04/07/21 Chief Complaint: demise twin gestation: 17 weeks This is an interim H&P as 1 was dictated 2 days ago at her initial presentation for induction at that time she declined. Patient is a 20-year-old female who has a 17 week twin demise. Babies were monochorionic diamniotic and she was seen at maternal- medicine on Monday a week ago and noted to have a demise for the twins and was sent to [facility] where they diagnosed demise of the other twin 2 days later. On I tried getting her to do an induction but at that time was not available. Monday she was scheduled for induction but she refused. She returns today on Monday for induction of labor. She was supposed to take Cytotec last night to hopefully speed the process along but she declined at that time to take it as she related that she felt it was aborted fact and and she would refuse to take an aborted fact and despite the fact that she was having a miscarriage I think there is a communication issue and she didn't call to clarify what exactly we were planning to do. I have discussed today's plan with she and her family and all questions are answered for her prior to initiation of the induction. We did discuss the possibility that she could have heavy bleeding or other issues her possibility for multi-day induction is certainly present will plan to use Cytotec 400 mg every 4 hours intravaginally for the first day. Follow the questions are answered for her Past Medical History Past Medical History: Asthma, Skin Disorder Additional Past Medical History / Comment(s): excema History of Any Multi-Drug Resistant Organisms: None Reported Past Surgical History: No Surgical Hx Reported Past Anesthesia/Blood Transfusion Reactions: No Reported Reaction Past Psychological History: ADD/ADHD, Anxiety, Bipolar Smoking Status: Former smoker Past Alcohol Use History: None Reported Past Drug Use History: None Reported - Past Family History Mother Family Medical History: Hypertension Medications and Allergies Home Medications Medication Instructions Recorded Confirmed Type Doxylamine Succinate [Unisom] 1 tab PO DIRECTED PRN 04/07/21 04/07/21 History Pnv No.95/Ferrous Fum/Folic AC 1 tab PO DAILY 04/07/21 04/07/21 History [ Multivitamin Tablet] Allergies Allergy/AdvReac Type Severity Reaction Status Date / Time methylphenidate Allergy Anaphylaxis Verified 04/07/21 07:25 [From Concerta] sertraline HCl [From Zoloft] Allergy Anaphylaxis Verified 04/07/21 07:25 Exam Osteopathic Statement: *. No significant issues noted on an osteopathic structural exam other than those noted in the History and Physical/Consult. Vital Signs Temp Pulse Resp BP 04/07/21 07:27 98.4 F 126 H 16 134/80 Intake and Output 04/07/21 04/07/21 04/08/21 14:59 22:59 06:59 Other: # Voids 2 Weight 57.153 kg - OBG Physical Exam Breast: both: normal (no masses) Abdomen: bowel sounds normal, no diffuse tenderness, no bruit present, no guarding noted, no hepatomegaly, no splenomegaly, no mass Vulva: both: normal Vagina: normal moisture, no discharge Cervix: no lesion, no discharge Uterus: normal size, normal contour Adnexa: both: normal Anus/Rectum: normal perianal skin, no rectal mass, no hemorrhoids, heme negative Results Result Diagrams: 04/07/21 08:00 Abnormal Lab Results - Last 24 Hours (Table) 04/07/21 Range/Units 08:00 WBC 14.1 H (3.8-10.6) k/uL Hgb 10.9 L (11.4-16.0) gm/dL Hct 31.8 L (34.0-46.0) % Neutrophils # 9.3 H (1.3-7.7) k/uL
[2021-04-08] MEDS: METOCLOPRAMIDE 5 MG/ML 2 ML VIAL IVP PRN (00:11)
--- NOTE | 2021-04-08 01:05 | P.PROBDLV ---
Vaginal Delivery Note - . Vaginal Delivery Note: Patient spontaneously delivered nonviable twins. She relates that a short while ago she began having pressure and she thought she had the bathroom so she went into the restroom and delivered them into the toilet. She was then brought back to bed and a short while later the placenta delivered spontaneously as well. Her bleeding is light at this time will plan to give some medication/Pitocin at least for a 30 minutes and verified that her bleeding remains stable. Once stable then the decision on whether she stays were goes home be up to her. All questions are answered for her at this time. Her vital signs are stable and again the bleeding is light.
[2021-04-08] MEDS ORDERED: ACETAMINOPHEN TAB 325 MG TAB PO PRN (01:31)
[2021-04-08] MEDS ORDERED: diphenhydrAMINE 50 MG CAP PO PRN (01:31)
[2021-04-08] MEDS ORDERED: SIMETHICONE 80 MG CHEWABLE PO PRN (01:31)
[2021-04-08] MEDS ORDERED: BENZOCAINE/MENTHOL SPRAY 1 GM/SPRAY AEROSOL TOPICAL PRN (01:31)
[2021-04-08] MEDS ORDERED: diphenhydrAMINE 25 MG CAP PO PRN (01:31)
[2021-04-08] MEDS ORDERED: diphenhydrAMINE 50 MG/ML 1 ML VIAL IVP PRN ×2 (01:31)
[2021-04-08] MEDS ORDERED: IBUPROFEN 600 MG TAB PO SCH (01:45)
--- NOTE | 2021-04-08 02:09 | P.DS ---
Providers Date of admission: 04/07/21 07:00 Expected date of discharge: 04/08/21 Attending physician: Virgilio Gusman Primary care physician: Stated None Hospital Course: Patient is seen and evaluated and after almost 2 hours following the delivery she is requesting to be discharged home. She reports that her lochia is light she has no other signs or symptoms her temperature is stable. She did have mild hyperpyrexia 100.2 following a very hot shower likely this is due to her medication she is aware should she start having any temperatures above 100.4 that she does report to the emergency room. Prescription for Motrin provided. Should she have any heavy vaginal bleeding severe pain or other signs or symptoms of issues relating to her miscarriage she is to notify our office or [facility] emergency room. I emphasized that there isn't a reason for her to have to go home she would like to stay until the morning but she is adamant that she would feel better with her family at home rather than staying the night in the hospital. All other questions are answered for her at this time. Her vital signs are otherwise stable and she is afebrile. Heart regular, lungs clear, extremities without pain. Abdomen soft and lochia is again reports to be light. Assessment post day 0 from a spontaneous miscarriage of twins gestation follow-up in approximately 1-2 weeks. A prescription for high-dose Motrin was forwarded to the pharmacy. Patient Condition at Discharge: Good Plan - Discharge Summary New Discharge Prescriptions: New Ibuprofen [Motrin] 600 mg PO Q6HR PRN #30 tab PRN Reason: Pain No Action Doxylamine Succinate [Unisom] 1 tab PO DIRECTED PRN PRN Reason: sleep Pnv No.95/Ferrous Fum/Folic AC [ Multivitamin Tablet] 1 tab PO DAILY Discharge Medication List Doxylamine Succinate [Unisom] 1 tab PO DIRECTED PRN 04/07/21 [History] Pnv No.95/Ferrous Fum/Folic AC [ Multivitamin Tablet] 1 tab PO DAILY 04/07/21 [History] Ibuprofen [Motrin] 600 mg PO Q6HR PRN #30 tab 04/08/21 [Rx] Follow up Appointment(s)/Referral(s): Virgilio Gusman DO [Doctor of Osteopathic Medicine] - 1 Week Activity/Diet/Wound Care/Special Instructions: He lifting, limit stairs and driving, and pelvic rest. If any high temperatures, heavy bleeding, or severe pain call my office Discharge Disposition: HOME SELF-CARE
[2021-04-08] MEDS ORDERED: SENNOSIDES-DOCUSATE SODIUM 1 EACH TAB PO SCH (08:00)
== END 2021-04-08 02:40 | disposition home or self-care (01) ==
LOC: INTOOBSV 07:00 → 4FBP 07:00 → UNDODISIN 04-08 02:40
PROVIDERS: ADMIT Obstetrics & Gynecology; ATTEND Obstetrics & Gynecology
DX: O35.8XX2 Maternal care for other (suspected) fetal abnormality and damage, fetus 2 (principal); Z37.4 Twins, both stillborn; O30.002 Twin pregnancy, unspecified number of placenta and unspecified number of amniotic sacs, second trimester; Z3A.17 17 weeks gestation of pregnancy; O99.52 Diseases of the respiratory system complicating childbirth; J45.909 Unspecified asthma, uncomplicated; L98.9 Disorder of the skin and subcutaneous tissue, unspecified; F90.9 Attention-deficit hyperactivity disorder, unspecified type; F41.9 Anxiety disorder, unspecified; F31.9 Bipolar disorder, unspecified; Z88.8 Allergy status to other drugs, medicaments and biological substances; Z87.891 Personal history of nicotine dependence; Z82.49 Family history of ischemic heart disease and other diseases of the circulatory system
CPT/HCPCS: 59409; 96376 ×2; 96374; 96375; 86900; 86901; 88305; 85025; 86850; 88300; G0378 ×2; G0379; J2765 ×2; J0595; S0191; J1885

== ENCOUNTER 2021-08-03 11:49 | Emergency (ER) | payer OTHER ==
[2021-08-03 12:13] VITALS: BP 115/74; PULSE 87; RESP 18; TEMP 98.2
[2021-08-03] MEDS ORDERED: diphenhydrAMINE 25 MG CAP PO STA (12:50)
[2021-08-03] MEDS ORDERED: methylPREDNISolone SOD SUCCI 125 MG/2 ML VIAL IM STA (12:50)
--- NOTE | 2021-08-03 13:15 | ED ---
General Adult HPI - General Chief complaint: Allergic Reaction Stated complaint: allergic reaction Time Seen by Provider: 08/03/21 12:33 Source: patient Mode of arrival: ambulatory Limitations: no limitations - History of Present Illness Initial comments: 20-year-old female presents to the emergency room for a chief complaint of ALLERGIC reaction. Last night patient was exposed to a new detergent. She had just washed her clothes out of the dryer. She immediately started to break out in hives. Patient states she has had some throat swelling and shortness of breath as well. Patient states hives have resolved but she still feels like her throat is scratchy.Patient has no other complaints at this time including shortness of breath, chest pain, abdominal pain, nausea or vomiting, headache, or visual changes. - Related Data Home Medications Medication Instructions Recorded Confirmed Doxylamine Succinate [Unisom] 1 tab PO DIRECTED PRN 04/07/21 04/07/21 Pnv No.95/Ferrous Fum/Folic AC 1 tab PO DAILY 04/07/21 04/07/21 [ Multivitamin Tablet] Previous Rx's Medication Instructions Recorded Ibuprofen [Motrin] 600 mg PO Q6HR PRN #30 tab 04/08/21 predniSONE 50 mg PO DAILY #5 tablet 08/03/21 Allergies Allergy/AdvReac Type Severity Reaction Status Date / Time methylphenidate Allergy Anaphylaxis Verified 08/03/21 12:13 [From Concerta] sertraline HCl [From Zoloft] Allergy Anaphylaxis Verified 08/03/21 12:13 Review of Systems ROS Statement: Those systems with pertinent positive or pertinent negative responses have been documented in the HPI. ROS Other: All systems not noted in ROS Statement are negative. Past Medical History Past Medical History: Asthma, Skin Disorder Additional Past Medical History / Comment(s): excema History of Any Multi-Drug Resistant Organisms: None Reported Past Surgical History: No Surgical Hx Reported Past Anesthesia/Blood Transfusion Reactions: No Reported Reaction Past Psychological History: ADD/ADHD, Anxiety, Bipolar, Depression Smoking Status: Vaper Past Alcohol Use History: None Reported Past Drug Use History: None Reported - Past Family History Mother Family Medical History: Hypertension General Exam Limitations: no limitations General appearance: alert, in no apparent distress Head exam: Present: atraumatic Eye exam: Present: normal appearance, PERRL, EOMI. Absent: scleral icterus, conjunctival injection ENT exam: Present: normal exam, normal oropharynx (No swelling of the lips tongue or throat), mucous membranes moist Neck exam: Present: normal inspection, full ROM. Absent: tenderness Respiratory exam: Present: normal lung sounds bilaterally. Absent: respiratory distress, wheezes Cardiovascular Exam: Present: regular rate, normal rhythm, normal heart sounds Skin exam: Present: warm, dry, intact, normal color. Absent: rash Course Vital Signs 08/03/21 12:05 Temperature 98.2 F Pulse Rate 87 Respiratory 18 Rate Blood Pressure 115/74 O2 Sat by Pulse 97 Oximetry Medical Decision Making - Medical Decision Making Patient was given IM Solu-Medrol. She had arty taken 25 mg of Benadryl upon arrival and was given an additional 25 mg of Benadryl. Patients symptoms of throat irritation had started last night. No worsening symptoms today but wanted to be evaluated. At this time patient is stable for discharge home with outpatient follow-up. She is not having any obvious swelling at this time. She will be given steroids for the next several days. She will return here for any worsening symptoms. Disposition Clinical Impression: Allergic reaction Disposition: HOME SELF-CARE Condition: Good Instructions (If sedation given, give patient instructions): General Allergic Reaction (ED) Additional Instructions: Take Benadryl as needed. Start steroid prescription tomorrow as you were already given a dose of steroids in the emergency room. Follow-up with your doctor. If you have any worsening symptoms return to the emergency room. Prescriptions: predniSONE 50 mg PO DAILY #5 tablet Is patient prescribed a controlled substance at d/c from ED?: No Referrals: Hugh Frazier MD [REFERRING] - 1-2 days Time of Disposition: 13:13
== END 2021-08-03 13:20 | disposition home or self-care (01) ==
LOC: EC 11:49
DX: T78.40XA Allergy, unspecified, initial encounter (principal); R06.02 Shortness of breath; R22.1 Localized swelling, mass and lump, neck; J45.909 Unspecified asthma, uncomplicated; Z87.891 Personal history of nicotine dependence
CPT/HCPCS: 99284; 96372; J2930

== ENCOUNTER 2021-09-11 22:39 | Emergency (ER) | payer OTHER ==
[2021-09-11 22:44] VITALS: BP 117/74; PULSE 99; RESP 20; TEMP 100.2
[2021-09-11] MEDS ORDERED: SODIUM CHLORIDE 0.9% 1,000 ML IV ONE (23:10)
--- NOTE | 2021-09-11 23:13 | ED ---
General Adult HPI - General Chief complaint: Vaginal Bleeding Stated complaint: Vaginal Bleeding, 5 weeks pgt Time Seen by Provider: 09/11/21 22:47 Source: patient Mode of arrival: ambulatory Limitations: no limitations - History of Present Illness Initial comments: 20-year-old female patient presents to the emergency department today for evaluation of vaginal bleeding. Patient is approximately 5 weeks according to last menstrual period August 05. She had positive test 2 weeks ago. States she started bleeding about an hour ago. Denies any passage of blood clots. Denies any abdominal pain or cramping. She is with loss of twin at the beginning of this year. Patient denies any recent rash, fever, chills, cough, shortness of breath, chest pain, diarrhea, constipation, back pain, numbness, tingling, dizziness, weakness, hematuria, dysuria, urinary urgency, urinary frequency, headache, visual changes, or any other complaints. - Related Data Home Medications Medication Instructions Recorded Confirmed Doxylamine Succinate [Unisom] 1 tab PO DIRECTED PRN 04/07/21 04/07/21 Pnv No.95/Ferrous Fum/Folic AC 1 tab PO DAILY 04/07/21 04/07/21 [ Multivitamin Tablet] Previous Rx's Medication Instructions Recorded Ibuprofen [Motrin] 600 mg PO Q6HR PRN #30 tab 04/08/21 predniSONE 50 mg PO DAILY #5 tablet 08/03/21 Allergies Allergy/AdvReac Type Severity Reaction Status Date / Time methylphenidate Allergy Anaphylaxis Verified 09/11/21 22:41 [From Concerta] sertraline HCl [From Zoloft] Allergy Anaphylaxis Verified 09/11/21 22:41 Review of Systems ROS Statement: Those systems with pertinent positive or pertinent negative responses have been documented in the HPI. ROS Other: All systems not noted in ROS Statement are negative. Past Medical History Past Medical History: Asthma, Skin Disorder Additional Past Medical History / Comment(s): excema History of Any Multi-Drug Resistant Organisms: None Reported Past Surgical History: No Surgical Hx Reported Past Anesthesia/Blood Transfusion Reactions: No Reported Reaction Past Psychological History: ADD/ADHD, Anxiety, Bipolar, Depression Smoking Status: Vaper Past Alcohol Use History: None Reported Past Drug Use History: None Reported - Past Family History Mother Family Medical History: Hypertension General Exam Limitations: no limitations General appearance: alert, in no apparent distress, other (This is a well- developed, well-nourished adult female patient in no acute distress.) Respiratory exam: Present: normal lung sounds bilaterally. Absent: respiratory distress, wheezes, rales, rhonchi, stridor Cardiovascular Exam: Present: regular rate, normal rhythm, normal heart sounds. Absent: systolic murmur, diastolic murmur, rubs, gallop, clicks GI/Abdominal exam: Present: soft, normal bowel sounds. Absent: distended, tenderness, guarding, rebound, rigid Neurological exam: Present: alert, oriented X3, CN II-XII intact Psychiatric exam: Present: normal affect, normal mood Skin exam: Present: warm, dry, intact, normal color. Absent: rash Course Vital Signs 09/11/21 22:41 Temperature 100.2 F H Pulse Rate 99 Respiratory 20 Rate Blood Pressure 117/74 O2 Sat by Pulse 98 Oximetry Medical Decision Making - Medical Decision Making 20-year-old female patient who is presents to the emergency department tonirmala kevin for evaluation of vaginal bleeding after a positive home test. Patient is 5 weeks based on last menstrual period. Physical examination revealed soft nontender abdomen. Labs reviewed and did reveal hCG level of 29. Ultrasound was performed and showed an empty uterus. We did discuss possibility of early versus miscarriage. She is instructed to maintain pelvic rest until cleared by her COURT REGISTRY OFFICER. She is given lab slip to have repeat hCG level drawn in 2 [address] She does see Dr. Gusman for Obstetric care. Return parameters were discussed in detail. She verbalizes understanding and agrees with this plan. My attending is Dr. Angel. - Lab Data Result diagrams: 09/11/21 23:35 09/11/21 23:35 Lab Results 09/11/21 09/11/21 09/11/21 Range/Units 23:35 23:35 23:35 WBC 8.1 (3.8-10.6) k/uL RBC 4.52 (3.80-5.40) m/uL Hgb 12.2 (11.4-16.0) gm/dL Hct 38.3 (34.0-46.0) % MCV 84.8 (80.0-100.0) fL MCH 27.1 (25.0-35.0) pg MCHC 31.9 (31.0-37.0) g/dL RDW 14.2 (11.5-15.5) % Plt Count 274 (150-450) k/uL MPV 8.2 Neutrophils % 60 % Lymphocytes % 29 % Monocytes % 8 % Eosinophils % 1 % Basophils % 0 % Neutrophils # 4.9 (1.3-7.7) k/uL Lymphocytes # 2.3 (1.0-4.8) k/uL Monocytes # 0.6 (0-1.0) k/uL Eosinophils # 0.1 (0-0.7) k/uL Basophils # 0.0 (0-0.2) k/uL Sodium 138 (137-145) mmol/L Potassium 3.7 (3.5-5.1) mmol/L Chloride 105 (98-107) mmol/L Carbon Dioxide 23 (22-30) mmol/L Anion Gap 10 mmol/L BUN 11 (7-17) mg/dL Creatinine 0.54 (0.52-1.04) mg/dL Est GFR (CKD-EPI)AfAm >90 (>60 ml/min/1.73 sqM) Est GFR (CKD-EPI)NonAf >90 (>60 ml/min/1.73 sqM) Glucose 95 (74-99) mg/dL Calcium 9.3 (8.4-10.2) mg/dL Total Bilirubin 0.5 (0.2-1.3) mg/dL AST 21 (14-36) U/L ALT 15 (4-34) U/L Alkaline Phosphatase 76 (38-126) U/L Total Protein 7.7 (6.3-8.2) g/dL Albumin 4.4 (3.5-5.0) g/dL HCG, Quant 29.1 mIU/mL Urine Color Yellow Urine Appearance Cloudy H (Clear) Urine pH 5.5 (5.0-8.0) Ur Specific [place] 1.027 (1.001-1.035) Urine Protein 1+ H (Negative) Urine Glucose (UA) Negative (Negative) Urine Ketones Negative (Negative) Urine Blood Large H (Negative) Urine Nitrite Negative (Negative) Urine Bilirubin Negative (Negative) Urine Urobilinogen 2.0 (<2.0) mg/dL Ur Leukocyte Esterase Small H (Negative) Urine RBC 10 H (0-5) /hpf Urine WBC 28 H (0-5) /hpf Ur Squamous Epith Cells 11 H (0-4) /hpf Urine Mucus Few H (None) /hpf Blood Type Blood Type Recheck Bld Type Recheck Status 09/11/21 Range/Units 23:41 WBC (3.8-10.6) k/uL RBC (3.80-5.40) m/uL Hgb (11.4-16.0) gm/dL Hct (34.0-46.0) % MCV (80.0-100.0) fL MCH (25.0-35.0) pg MCHC (31.0-37.0) g/dL RDW (11.5-15.5) % Plt Count (150-450) k/uL MPV Neutrophils % % Lymphocytes % % Monocytes % % Eosinophils % % Basophils % % Neutrophils # (1.3-7.7) k/uL Lymphocytes # (1.0-4.8) k/uL Monocytes # (0-1.0) k/uL Eosinophils # (0-0.7) k/uL Basophils # (0-0.2) k/uL Sodium (137-145) mmol/L Potassium (3.5-5.1) mmol/L Chloride (98-107) mmol/L Carbon Dioxide (22-30) mmol/L Anion Gap mmol/L BUN (7-17) mg/dL Creatinine (0.52-1.04) mg/dL Est GFR (CKD-EPI)AfAm (>60 ml/min/1.73 sqM) Est GFR (CKD-EPI)NonAf (>60 ml/min/1.73 sqM) Glucose (74-99) mg/dL Calcium (8.4-10.2) mg/dL Total Bilirubin (0.2-1.3) mg/dL AST (14-36) U/L ALT (4-34) U/L Alkaline Phosphatase (38-126) U/L Total Protein (6.3-8.2) g/dL Albumin (3.5-5.0) g/dL HCG, Quant mIU/mL Urine Color Urine Appearance (Clear) Urine pH (5.0-8.0) Ur Specific [place] (1.001-1.035) Urine Protein (Negative) Urine Glucose (UA) (Negative) Urine Ketones (Negative) Urine Blood (Negative) Urine Nitrite (Negative) Urine Bilirubin (Negative) Urine Urobilinogen (<2.0) mg/dL Ur Leukocyte Esterase (Negative) Urine RBC (0-5) /hpf Urine WBC (0-5) /hpf Ur Squamous Epith Cells (0-4) /hpf Urine Mucus (None) /hpf Blood Type O Positive Blood Type Recheck O Pos Bld Type Recheck Status No - Radiology Data Radiology results: report reviewed, image reviewed Ultrasound obtained the pelvis. Impression by Dr. Estrada shows uterus is empty. No adnexal mass. Normal endometrium. Disposition Clinical Impression: Threatened miscarriage Disposition: HOME SELF-CARE Condition: Good Instructions (If sedation given, give patient instructions): Threatened Miscarriage (ED) Additional Instructions: Return in 2 days to have your blood redrawn. Follow-up with Dr. Gusman for recheck as soon as possible. Return to the emergency department for any new, worsening, or concerning symptoms. Is patient prescribed a controlled substance at d/c from ED?: No Referrals: None,Stated [Primary Care Provider] - 1-2 days Time of Disposition: 00:53
[2021-09-11 23:45] LABS: Basophils % (A) 0 %; Eosinophils # (A) 0.1 k/uL (0-0.7); Eosinophils % (A) 1 %; HCT 38.3 % (34.0-46.0); HGB 12.2 gm/dL (11.4-16.0); Lymphocytes # (A) 2.3 k/uL (1.0-4.8); Lymphocytes % (A) 29 %; MCH 27.1 pg (25.0-35.0); MCHC 31.9 g/dL (31.0-37.0); MCV 84.8 fL (80.0-100.0); Mean Platelet Volume 8.2; Monocytes # (A) 0.6 k/uL (0-1.0); Monocytes % (A) 8 %; Neutrophils # (A) 4.9 k/uL (1.3-7.7); Neutrophils % (A) 60 %; Platelet Count 274 k/uL (150-450); RBC 4.52 m/uL (3.80-5.40); RDW 14.2 % (11.5-15.5); WBC 8.1 k/uL (3.8-10.6)
[2021-09-11 23:53] LABS: Appearance,Urine Cloudy (Clear); Bilirubin,Urine Negative (Negative); Blood,Urine Large (Negative); Color,Urine Yellow; Glucose,Urine (UA) Negative (Negative); Ketones,Urine Negative (Negative); Leukocyte Esterase,Urine Small (Negative); Mucus,Urine Few /hpf; Nitrite,Urine Negative (Negative); PH, Urine 5.5 (5.0-8.0); Protein,Urine 1+ (Negative); RBC,Urine 10 /hpf (0-5); Specific Gravity,Urine 1.027 (1.001-1.035); Squamous Epithelial Cell,Urine 11 /hpf (0-4); WBC,Urine 28 /hpf (0-5)
[2021-09-11 23:54] LABS: ALT 15 U/L (4-34); AST 21 U/L (14-36); African American GFR (CKD) >90 (>60 ml/min/1.73 sqM); Albumin 4.4 g/dL (3.5-5.0); Alkaline Phosphatase 76 U/L (38-126); Anion Gap 10 mmol/L; Blood Urea Nitrogen 11 mg/dL (7-17); Calcium 9.3 mg/dL (8.4-10.2); Carbon Dioxide 23 mmol/L (22-30); Chloride 105 mmol/L (98-107); Glucose 95 mg/dL (74-99); Non-African American GFR(CKD) >90 (>60 ml/min/1.73 sqM); Potassium 3.7 mmol/L (3.5-5.1); Sodium 138 mmol/L (137-145); Total Bilirubin 0.5 mg/dL (0.2-1.3); Total Protein 7.7 g/dL (6.3-8.2)
[2021-09-12 00:11] LABS: HCG,Quantitative Serum 29.1 mIU/mL
--- NOTE | 2021-09-12 00:32 | US ---
EXAMINATION TYPE: Transabdominal DATE OF EXAM: 09/12/2021 12:18 AM COMPARISON: NONE CLINICAL HISTORY: Vaginal bleeding . Pt states vaginal light to moderate vaginal bleeding th at started a couple of hours ago EXAM PERFORMED: Transabdominal (TA) EXAM MEASUREMENTS: GESTATIONAL AGE / DATING Physician Established: Not yet established Dates by LMP: (5 weeks/3 days) EDC: 05/12/2022 Dates by First Scan: No previous this is first scan Dates by Current Scan for: No IUP seen at this time MATERNAL ANATOMY Uterus: 8.8 x 5.0 x 5.1 cm Right Ovary: 2.7 x 2.0 x 1.6 cm Left Ovary: 3.7 x 3.3 x 1.9 cm Post CDS / Adnexa: wnl Presence of free fluid: Scant amount within post cul-de-sac Presence of corpus luteal cyst: Left Ovary= 1.6 x 1.2 x 1.5 cm GESTATION / SURVEY IUP: No IUP seen at this time Date of LMP: 08/05/2021 Beta HcG (if available): Not available at this time No IUP visualized at this time, endo thickness= 1.2 cm IMPRESSION: Uterus is empty. No adnexal mass. Normal endometrium.
== END 2021-09-12 01:44 | disposition home or self-care (01) ==
LOC: EC 22:39
DX: O20.0 Threatened abortion (principal); O99.511 Diseases of the respiratory system complicating pregnancy, first trimester; O99.331 Smoking (tobacco) complicating pregnancy, first trimester; J45.909 Unspecified asthma, uncomplicated; F17.290 Nicotine dependence, other tobacco product, uncomplicated; Z67.40 Type O blood, Rh positive; Z3A.01 Less than 8 weeks gestation of pregnancy; Z88.8 Allergy status to other drugs, medicaments and biological substances
CPT/HCPCS: 36415; 76801; 80053; 81001; 84702; 85025; 86900; 86901; 87086; 96360; 96361; 99284